=== PATIENT | male | born 1960 | race Caucasian/White ===

== ENCOUNTER 2016-12-11 15:05 | Inpatient (IN) | payer MEDICAID ==
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
[2016-12-11 15:20] LABS: % IMMATURE GRANULYOCYTES 1.1 % (0.0-1.1); ABSOLUTE IMMATURE GRANULOCYTES 0.27 10^3/uL (0.00-0.10); ADD DIFF? NO; ADD MORPH? NO; ADD SCAN? NO; ATYPICAL LYMPHOCYTE FLAG 0 (0-99); FRAGMENT RBC FLAG 0 (0-99); HEMATOCRIT 48.5 % (40.0-51.0); HEMOGLOBIN 16.6 g/dL (13.7-17.5); LEFT SHIFT FLG 20 (0-99); LIPEMIA HEMOLYSIS FLAG 90 (0-99); MEAN CELL HEMOGLOBIN 32.1 pg (27.9-34.1); MEAN CELL HEMOGLOBIN CONCENTR. 34.2 g/dL (32.4-36.7); MEAN CELL VOLUME 93.8 fL (81.5-99.8); PLATELET CLUMPS FLAG 0 (0-99); PLATELET COUNT 269 10^3/uL (150-400); RED BLOOD CELL COUNT 5.17 10^6/uL (4.40-6.38); RED CELL DISTRIBUTION WIDTH 13.5 % (11.5-15.2)
[2016-12-11] MEDS ORDERED: LORazepam 2 MG/ML INJ IVP ONE ×2 (15:30→16:47)
[2016-12-11 15:35] LABS: INR 1.13 (0.83-1.16); PROTIME(PATIENT) 14.4 SEC (12.0-15.0)
[2016-12-11 15:36] LABS: APTT 30.9 SEC (23.0-38.0)
[2016-12-11] MEDS ORDERED: LORazepam 2 MG/ML INJ ONE (15:41)
[2016-12-11 15:48] LABS: ANION GAP 15 mEq/L (8-16); CALCIUM 9.4 mg/dL (8.5-10.4); CARBON DIOXIDE 16 mEq/l (22-31); CHLORIDE 104 mEq/L (97-110); ETHANOL SERUM < 10 mg/dL (0-10); GLOMERULAR FILTRATION RATE > 60; GLUCOSE 160 mg/dL (70-100); POTASSIUM 4.5 mEq/L (3.5-5.2); SODIUM 135 mEq/L (134-144)
[2016-12-11] MEDS ORDERED: TDAP ADULT 0.5 ML INJ (BOOSTRIX) IM ONE (16:28)
[2016-12-11] MEDS: PROPOFOL/EMULSION 100 ML IV SCH ×2 (17:15→20:17)
[2016-12-11] MEDS ORDERED: PROPOFOL/EMULSION 1,000 MG/100 ML BOTTLE IV ONE (17:18)
[2016-12-11] MEDS ORDERED: fentaNYL 100 MCG/2 ML INJ ONE ×4 (18:08→22:15)
[2016-12-11 18:09] LABS: BASE EXCESS -4.9 mEq/L (-2.5-2.5); BICARBONATE 22 mEq/L (22-26); MEASURED OXYGEN SATURATION 99 % (92-95); PCO2 49 mmHg (34-38); PO2 382 mmHg (65-75); TCO2 24 mEq/L (23-27)
[2016-12-11 18:27] LABS: SIMV YES
[2016-12-11 18:28] LABS: O2 CONCENTRATIION 100 % (0-100); P/F RATIO 382 RATIO; PATIENT RATE 14; PRESSURE SUPPORT 7
[2016-12-11] MEDS ORDERED: ETOMIDATE 20 MG/10 ML VIAL IVP ONE (18:49)
[2016-12-11] MEDS ORDERED: PROPOFOL 200 MG/20 ML VIAL IVP ONE (18:49)
[2016-12-11] MEDS ORDERED: SUCCINYLCHOLINE CHLORIDE 200 MG/10 ML VIAL IVP ONE (18:49)
[2016-12-11] MEDS ORDERED: fentaNYL 100 MCG/2 ML INJ IVP ONE ×2 (18:49→18:59)
[2016-12-11] MEDS ORDERED: ETOMIDATE 40 MG/20 ML INJ ONE (19:43)
[2016-12-11] MEDS ORDERED: SUCCINYLCHOLINE CHLORIDE*ANESTHESIA ONLY*200 MG/10 ML SYR IVP ONE (19:43)
[2016-12-11] MEDS ORDERED: HYDROmorphONE/DILAUDID 1 MG/ML SYR IVP PRN (20:15)
[2016-12-11] MEDS ORDERED: D5W 1/2 NS W/ 20 KCl/L 1,000 ML IV SCH (20:15)
[2016-12-11] MEDS ORDERED: ONDANSETRON 4 MG/2 ML VIAL IVP PRN (20:16)
[2016-12-11] MEDS ORDERED: NALOXONE HCL 0.4 MG/ML INJ IVP PRN ×2 (20:16→22:13)
[2016-12-11] MEDS ORDERED: ACETAMINOPHEN 325 MG TAB PO PRN (20:16)
[2016-12-11] MEDS: levETIRAcetam 750 MG in NS 100 ML IV SCH (20:26)
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
[2016-12-11] MEDS: FAMOTIDINE 20 MG/NACL 50 ML IV SCH (20:34)
[2016-12-11] MEDS ORDERED: THROMBIN (BOVINE) 5,000 UNIT VIAL TP ONE (20:38)
[2016-12-11] MEDS ORDERED: MANNITOL 20% 100 GM/500 ML BAG IV ONE (20:38)
[2016-12-11] MEDS ORDERED: AVITENE POWDER 1 GM JAR TP ONE (20:38)
[2016-12-11] MEDS ORDERED: BUPIVACAINE/EPI 0.25% 30 ML SDV ONE (20:38)
[2016-12-11] MEDS ORDERED: BACITRACIN 50,000 UNITS/10 ML SYR IRR ONE ×2 (20:39→21:35)
[2016-12-11] MEDS ORDERED: PROPOFOL/EMULSION 500 MG/50 ML BOTTLE IV ONE (21:39)
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
[2016-12-11 21:56] LABS: BASE EXCESS -3.8 mEq/L (-2.5-2.5); BICARBONATE 21 mEq/L (22-26); MEASURED OXYGEN SATURATION 100 % (92-95); PCO2 41 mmHg (34-38); PO2 420 mmHg (65-75); TCO2 23 mEq/L (23-27)
[2016-12-11] MEDS ORDERED: SUGAMMADEX SODIUM 200 MG/2 ML VIAL IVP ONE (22:32)
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
[2016-12-11] MEDS ORDERED: niCARdipine/NACL 200 ML IV SCH (23:00)
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
[2016-12-12 05:05] LABS: % IMMATURE GRANULYOCYTES 0.5 % (0.0-1.1); ABSOLUTE IMMATURE GRANULOCYTES 0.09 10^3/uL (0.00-0.10); ADD DIFF? NO; ADD MORPH? NO; ADD SCAN? NO; ATYPICAL LYMPHOCYTE FLAG 0 (0-99); FRAGMENT RBC FLAG 0 (0-99); HEMOGLOBIN 13.1 g/dL (13.7-17.5); LEFT SHIFT FLG 10 (0-99); LIPEMIA HEMOLYSIS FLAG 90 (0-99); MEAN CELL HEMOGLOBIN 32.3 pg (27.9-34.1); MEAN CELL HEMOGLOBIN CONCENTR. 34.5 g/dL (32.4-36.7); MEAN CELL VOLUME 93.6 fL (81.5-99.8); MEAN PLATELET VOLUME 9.5 fL (8.7-11.7); PLATELET CLUMPS FLAG 10 (0-99); PLATELET COUNT 212 10^3/uL (150-400); RED BLOOD CELL COUNT 4.06 10^6/uL (4.40-6.38); RED CELL DISTRIBUTION WIDTH 13.6 % (11.5-15.2)
[2016-12-12 05:15] LABS: APTT 27.5 SEC (23.0-38.0); INR 1.14 (0.83-1.16); PROTIME(PATIENT) 14.5 SEC (12.0-15.0)
[2016-12-12 05:32] LABS: ALANINE AMINOTRANSFERASE 30 IU/L (21-72); ALKALINE PHOSPHATASE 84 IU/L (38-126); AMYLASE 71 IU/L (30-110); ASPARTATE AMINOTRANSFERASE 40 IU/L (17-59); BILIRUBIN,TOTAL 0.8 mg/dL (0.1-1.4); BILIRUBIN-CONJUGATED 0.4 mg/dL (0.0-0.5); BILIRUBIN-UNCONJUGATED 0.4 mg/dL (0.0-1.1); CALCIUM 8.6 mg/dL (8.5-10.4); CARBON DIOXIDE 21 mEq/l (22-31); CHLORIDE 108 mEq/L (97-110); CREATININE 0.9 mg/dL (0.7-1.3); GLOMERULAR FILTRATION RATE > 60; GLUCOSE 127 mg/dL (70-100); SODIUM 135 mEq/L (134-144); TOTAL PROTEIN 5.2 g/dL (6.3-8.2)
[2016-12-12 05:38] LABS: ANION GAP 6 mEq/L (8-16); POTASSIUM 4.5 mEq/L (3.5-5.2)
[2016-12-12] MEDS: ceFAZolin 2 GM/DEXTROSE 100 ML IV SCH ×3 (05:49→21:24)
[2016-12-12] MEDS: PROPOFOL/EMULSION 100 ML IV SCH ×2 (05:50→13:19)
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
[2016-12-12] MEDS: levETIRAcetam 750 MG in NS 100 ML IV SCH ×2 (08:44→21:24)
[2016-12-12] MEDS: FAMOTIDINE 20 MG/NACL 50 ML IV SCH ×2 (08:44→21:24)
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
[2016-12-12] MEDS: BACITRACIN ZINC 14.2 GM OINTTUBE TP SCH ×2 (09:29→19:49)
[2016-12-12 10:28] LABS: COLOR PALE YELLOW; LEUKOCYTE ESTERASE,URINE NEGATIVE (NEGATIVE); NITRITE,URINE NEGATIVE (NEGATIVE)
[2016-12-12 10:32] LABS: MUCUS TRACE /lpf (NONE-1+)
[2016-12-12] MEDS: CHLORHEXIDINE GLUCONATE 15 ML UDL PO SCH ×2 (11:30→21:24)
--- NOTE | 2016-12-12 12:41 | POSTANESTH ---
Post Anesthetic Evaluation Cardiovascular Status: Similar to Pre-Op Cond Respiratory Status: Similar to Pre-op Cond. Level of Consciousness/Mental Status: Other, See Comment Pain Control: Adequate, Prn Tx Ordered Nausea/Vomiting Control: Adequate, Prn Tx Ordered Complications Possibly Related to Anesthesia: None Noted (pt intubated/sedated)
[2016-12-12] MEDS: NS W/ 20 KCl/L 1,000 ML IV SCH (13:59)
[2016-12-12] MEDS: fentaNYL/NACL 100 ML IV SCH (14:17)
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
[2016-12-13] MEDS: NS W/ 20 KCl/L 1,000 ML IV SCH ×2 (03:10→12:57)
[2016-12-13] MEDS: fentaNYL/NACL 100 ML IV SCH ×3 (03:11→12:58)
[2016-12-13 04:20] LABS: BASE EXCESS -0.7 mEq/L (-2.5-2.5); BICARBONATE 23 mEq/L (22-26); MEASURED OXYGEN SATURATION 99 % (92-95); PCO2 38 mmHg (34-38); PO2 128 mmHg (65-75); TCO2 25 mEq/L (23-27)
[2016-12-13 04:21] LABS: END TIDAL CO2 32
[2016-12-13 04:22] LABS: % IMMATURE GRANULYOCYTES 0.5 % (0.0-1.1); ABSOLUTE IMMATURE GRANULOCYTES 0.09 10^3/uL (0.00-0.10); ADD DIFF? NO; ADD MORPH? NO; ADD SCAN? NO; ATYPICAL LYMPHOCYTE FLAG 0 (0-99); FRAGMENT RBC FLAG 0 (0-99); HEMOGLOBIN 11.7 g/dL (13.7-17.5); LEFT SHIFT FLG 10 (0-99); LIPEMIA HEMOLYSIS FLAG 90 (0-99); MEAN CELL HEMOGLOBIN 32.2 pg (27.9-34.1); MEAN CELL HEMOGLOBIN CONCENTR. 34.4 g/dL (32.4-36.7); MEAN CELL VOLUME 93.7 fL (81.5-99.8); MEAN PLATELET VOLUME 9.6 fL (8.7-11.7); PLATELET CLUMPS FLAG 0 (0-99); PLATELET COUNT 191 10^3/uL (150-400); RED BLOOD CELL COUNT 3.63 10^6/uL (4.40-6.38)
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
[2016-12-13 04:31] LABS: APTT 28.6 SEC (23.0-38.0); INR 1.18 (0.83-1.16)
[2016-12-13 04:42] LABS: ALANINE AMINOTRANSFERASE 31 IU/L (21-72); ALKALINE PHOSPHATASE 78 IU/L (38-126); ANION GAP 6 mEq/L (8-16); ASPARTATE AMINOTRANSFERASE 34 IU/L (17-59); BILIRUBIN,TOTAL 0.8 mg/dL (0.1-1.4); BILIRUBIN-CONJUGATED 0.5 mg/dL (0.0-0.5); BILIRUBIN-UNCONJUGATED 0.3 mg/dL (0.0-1.1); CALCIUM 8.6 mg/dL (8.5-10.4); CARBON DIOXIDE 24 mEq/l (22-31); CHLORIDE 106 mEq/L (97-110); CREATININE 0.7 mg/dL (0.7-1.3); GLOMERULAR FILTRATION RATE > 60; GLUCOSE 119 mg/dL (70-100); POTASSIUM 4.5 mEq/L (3.5-5.2); SODIUM 136 mEq/L (134-144); TOTAL PROTEIN 5.1 g/dL (6.3-8.2)
[2016-12-13] MEDS: ceFAZolin 2 GM/DEXTROSE 100 ML IV SCH ×3 (05:39→20:53)
[2016-12-13] MEDS: BACITRACIN ZINC 14.2 GM OINTTUBE TP SCH ×2 (08:21→20:53)
[2016-12-13] MEDS: CHLORHEXIDINE GLUCONATE 15 ML UDL PO SCH ×2 (08:22→20:53)
[2016-12-13] MEDS: FAMOTIDINE 20 MG/NACL 50 ML IV SCH ×2 (08:22→20:53)
[2016-12-13] MEDS: levETIRAcetam 750 MG in NS 100 ML IV SCH ×2 (08:22→21:02)
[2016-12-13] MEDS: PROPOFOL/EMULSION 100 ML IV SCH ×3 (08:24→16:20)
--- NOTE | 2016-12-13 08:48 | NEUSURGPN ---
Date of Surgery: 12/11/16 Post Op Day: 2 Assessment/Plan: A: 56 yo M POD #2 right craniotomy for evacuation of EDH P: neuro: stable, patient moves all extremities when sedation lightened respiratory failure: sedated with fentanyl/propofol, extubation per pulmonary Na: stable at 136, will recheck Na at noon. If Na gets below 135 then we may add 3% NACL PT/OT/ST once extubated scd/annabel for dvt prophylaxis will go to Q2 hour neuro checks claire thuan MARISCAL today post op head CT 12/12 shows good evacuation of EDH, stable SDH/SAH please call with neuro changes discussed with Dr Rowley Subjective: chart reviewed Objective: intubated/sedated Pupils: 3 mm ou reactive massive left sided facial swelling maria dolores x 4 when sedation light C/D/I Neuro Check Frequency: Q2 hour Urinary Catheter in Place: Yes Urinary Catheter Indication: Accurate I & O Required Catheter Insertion Date: 12/11/16 - Physician Discussed Patient with : Amrik Neurosurgery Physical Exam - Vitals, I&O, Labs I and O 12/12/16 12/13/16 12/14/16 05:59 05:59 05:59 Intake Total 3549.1 2644 Output Total 1229 2872 Balance 2320.1 -228 Weight 80.9 kg 79.6 kg Intake: IV Intake (ml) 800 IV Infused (ml) 2749.1 2644 NS W/ 20 KCl/L 1,000 ml @ 616 2179 75 mls/hr IV CONT SHAHEED Rx #:[id number] Propofol/Emulsion 100 ml 41 308 @ Titrate IV CONT SHAHEED Rx# :[id number] fentaNYL/NACL 100 ml @ 38 157 Per Protocol IV CONT SHAHEED Rx#:[id number] Output: Urine (ml) 749 2212 Catheter 349 2212 Estimated Blood Loss (ml) 150 Gastrointestinal Tube 250 Output (ml) OG Tube Output (ml) 600 Large Bore (>12 Kyr[place]z) 600 Stomach DAVEY Drain Output (ml) 80 60 Right Scalp Gianfranco Manriquez 80 60 Vital Signs Temp Pulse Resp BP Pulse Ox 37 C 51 L 18 120/49 L 100 12/13/16 07:00 12/13/16 08:15 12/13/16 08:00 12/13/16 08:00 12/13/16 08:15 Laboratory Results 12/13/16 04:15 12/13/16 04:15 ICD10 Worksheet Patient Problems: Problems Problem Status Onset Acute subdural hematoma Acute Laceration Acute Skull fracture Acute Subarachnoid hemorrhage Acute Empyema Active Lymphedema Active
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
[2016-12-13] MEDS: METOCLOPRAMIDE 10 MG/2 ML VIAL IVP SCH ×2 (11:13→17:23)
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
[2016-12-13] MEDS ORDERED: DEXMEDETOMIDINE HCL 400 MCG in NS 100 ML IV SCH (11:30)
[2016-12-13] MEDS: LORazepam 2 MG/ML INJ IVP PRN (12:35)
[2016-12-13] MEDS ORDERED: NS 1,000 ML IV ONE (14:39)
[2016-12-13] MEDS ORDERED: ALBUMIN 5% 500 ML IV ONE (15:45)
--- NOTE | 2016-12-13 16:02 | WOCRNPDOC ---
WOCRN Advanced Assessment Note - Skin Integrity Problem, Advanced Assess Coccyx Dressing Type: Allevyn Life Dressing Description: Clean/Dry, Intact Exudate Amount: None Integumentary Issue Intervention: Visualized Under Dressing Jaqui Wound Tissue: Erythema, Non-blanching Wound Bed Color: Aiken Wound Bed Constitution: Smooth Tissue Wound Edges: Attached Site Measurement - Head-to-Toe Length X Width X Depth (cm): 0.4x0.4x0.1 Pressure Injury Stage: Stage 2 Pressure Injury Present on Admit: Yes Skin Integrity Problem Comment: Patient being offloaded. Wound is barely through the epidermis. Of note left knee has a non blanching area that is likely a contusion but warrents rechecking in a week when we follow up to ensure it is not a pressure injury.
[2016-12-13 16:33] LABS: CALCULATED OXYGEN SATURATION 98 % (92-95); O2 CONCENTRATIION 40 % (0-100)
[2016-12-13] MEDS ORDERED: ALBUTEROL 200 PUFFS/18 GM MDI IH PRN (17:20)
[2016-12-14] MEDS: METOCLOPRAMIDE 10 MG/2 ML VIAL IVP SCH ×4 (00:20→17:07)
[2016-12-14] MEDS: PROPOFOL/EMULSION 100 ML IV SCH ×2 (00:20→05:21)
[2016-12-14] MEDS: fentaNYL/NACL 100 ML IV SCH ×3 (00:30→21:17)
[2016-12-14 04:22] LABS: % IMMATURE GRANULYOCYTES 0.7 % (0.0-1.1); ABSOLUTE IMMATURE GRANULOCYTES 0.09 10^3/uL (0.00-0.10); ADD DIFF? NO; ADD MORPH? NO; ADD SCAN? NO; ATYPICAL LYMPHOCYTE FLAG 0 (0-99); FRAGMENT RBC FLAG 0 (0-99); HEMATOCRIT 27.7 % (40.0-51.0); HEMOGLOBIN 9.2 g/dL (13.7-17.5); LEFT SHIFT FLG 10 (0-99); LIPEMIA HEMOLYSIS FLAG 80 (0-99); MEAN CELL HEMOGLOBIN 32.2 pg (27.9-34.1); MEAN CELL HEMOGLOBIN CONCENTR. 33.2 g/dL (32.4-36.7); MEAN CELL VOLUME 96.9 fL (81.5-99.8); PLATELET CLUMPS FLAG 30 (0-99); PLATELET COUNT 165 10^3/uL (150-400); RED BLOOD CELL COUNT 2.86 10^6/uL (4.40-6.38); RED CELL DISTRIBUTION WIDTH 14.3 % (11.5-15.2)
[2016-12-14 04:36] LABS: ANION GAP 7 mEq/L (8-16); CALCIUM 8.2 mg/dL (8.5-10.4); CARBON DIOXIDE 27 mEq/l (22-31); CHLORIDE 106 mEq/L (97-110); CREATININE 0.7 mg/dL (0.7-1.3); GLOMERULAR FILTRATION RATE > 60; GLUCOSE 97 mg/dL (70-100); POTASSIUM 4.1 mEq/L (3.5-5.2); SODIUM 140 mEq/L (134-144)
[2016-12-14] MEDS: ceFAZolin 2 GM/DEXTROSE 100 ML IV SCH ×3 (05:22→21:13)
[2016-12-14 05:28] LABS: BASE EXCESS 1.3 mEq/L (-2.5-2.5); BICARBONATE 26 mEq/L (22-26); MEASURED OXYGEN SATURATION 98 % (92-95); PCO2 47 mmHg (34-38); PO2 108 mmHg (65-75); TCO2 28 mEq/L (23-27)
[2016-12-14 05:29] LABS: CPAP YES; END TIDAL CO2 48; O2 CONCENTRATIION 40 % (0-100); P/F RATIO 270 RATIO; PATIENT RATE 12
[2016-12-14 05:30] LABS: PRESSURE SUPPORT 7
[2016-12-14] MEDS: BACITRACIN ZINC 14.2 GM OINTTUBE TP SCH ×2 (08:21→20:07)
[2016-12-14] MEDS: CHLORHEXIDINE GLUCONATE 15 ML UDL PO SCH (08:21)
[2016-12-14] MEDS: FAMOTIDINE 20 MG/NACL 50 ML IV SCH ×2 (08:22→20:07)
[2016-12-14] MEDS: levETIRAcetam 750 MG in NS 100 ML IV SCH ×2 (08:53→20:07)
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
[2016-12-14] MEDS: DEXMEDETOMIDINE HCL 400 MCG in NS 100 ML IV SCH ×3 (13:07→22:39)
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
[2016-12-14] MEDS: LORazepam 2 MG/ML INJ IVP PRN ×3 (13:25→20:42)
[2016-12-14] MEDS: HALOPERIDOL LACT 5 MG/ML INJ IVP PRN (13:39)
[2016-12-14] MEDS ORDERED: ATROPINE SULFATE 1 MG/10 ML SYR ONE (16:55)
--- NOTE | 2016-12-14 17:58 | CPEKG ---
Heart Rate: 82 RR Interval: 732 QRSD Interval: 108 QT Interval: 376 QTC Interval: 439 QRS Appleton: 60 T Wave Appleton: 75 EKG Severity - ABNORMAL ECG - EKG Impression: ATRIAL FIBRILLATION EKG Impression: ATRIAL FIBRILLATION HAS REPLACED NORMAL SINUS RHYTHM NOTED ON PRIOR ECG Electronically Signed By: Xavier Zhao 15-Dec-2016 09:25:26
[2016-12-15] MEDS: METOCLOPRAMIDE 10 MG/2 ML VIAL IVP SCH ×4 (01:49→17:49)
[2016-12-15] MEDS: LORazepam 2 MG/ML INJ IVP PRN ×5 (02:57→23:14)
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
[2016-12-15 05:20] LABS: % IMMATURE GRANULYOCYTES 0.5 % (0.0-1.1); ABSOLUTE IMMATURE GRANULOCYTES 0.07 10^3/uL (0.00-0.10); ADD DIFF? NO; ADD MORPH? NO; ADD SCAN? NO; ATYPICAL LYMPHOCYTE FLAG 0 (0-99); FRAGMENT RBC FLAG 0 (0-99); HEMATOCRIT 28.4 % (40.0-51.0); HEMOGLOBIN 9.4 g/dL (13.7-17.5); LEFT SHIFT FLG 0 (0-99); LIPEMIA HEMOLYSIS FLAG 80 (0-99); MEAN CELL HEMOGLOBIN 31.6 pg (27.9-34.1); MEAN CELL HEMOGLOBIN CONCENTR. 33.1 g/dL (32.4-36.7); MEAN CELL VOLUME 95.6 fL (81.5-99.8); MEAN PLATELET VOLUME 9.6 fL (8.7-11.7); PLATELET CLUMPS FLAG 0 (0-99); PLATELET COUNT 213 10^3/uL (150-400); RED BLOOD CELL COUNT 2.97 10^6/uL (4.40-6.38); RED CELL DISTRIBUTION WIDTH 13.5 % (11.5-15.2)
[2016-12-15 05:33] LABS: ANION GAP 7 mEq/L (8-16); CALCIUM 8.6 mg/dL (8.5-10.4); CARBON DIOXIDE 28 mEq/l (22-31); CHLORIDE 104 mEq/L (97-110); CREATININE 0.7 mg/dL (0.7-1.3); GLOMERULAR FILTRATION RATE > 60; GLUCOSE 88 mg/dL (70-100); SODIUM 139 mEq/L (134-144)
[2016-12-15] MEDS: ceFAZolin 2 GM/DEXTROSE 100 ML IV SCH ×3 (05:56→21:37)
[2016-12-15] MEDS: DEXMEDETOMIDINE HCL 400 MCG in NS 100 ML IV SCH ×3 (05:56→21:38)
[2016-12-15] MEDS: fentaNYL/NACL 100 ML IV SCH ×2 (06:47→21:38)
[2016-12-15] MEDS: FAMOTIDINE 20 MG/NACL 50 ML IV SCH ×2 (08:01→21:40)
[2016-12-15] MEDS: levETIRAcetam 750 MG in NS 100 ML IV SCH ×2 (08:01→22:00)
[2016-12-15] MEDS: BACITRACIN ZINC 14.2 GM OINTTUBE TP SCH ×2 (08:02→21:00)
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
[2016-12-15] MEDS: HALOPERIDOL LACT 5 MG/ML INJ IVP PRN (15:13)
[2016-12-15] MEDS: NS W/ 20 KCl/L 1,000 ML IV SCH ×2 (15:56→21:38)
[2016-12-15] MEDS ORDERED: BACITRACIN OINTMENT 1 PACKET TP ONE (21:27)
[2016-12-16] MEDS: HALOPERIDOL LACT 5 MG/ML INJ IVP PRN ×2 (01:19→13:47)
[2016-12-16] MEDS: METOCLOPRAMIDE 10 MG/2 ML VIAL IVP SCH ×5 (01:31→23:40)
[2016-12-16] MEDS ORDERED: ALBUTEROL 3 ML DEYVIAL ONE (02:06)
[2016-12-16] MEDS: DEXMEDETOMIDINE HCL 400 MCG in NS 100 ML IV SCH ×2 (03:00→06:03)
[2016-12-16] MEDS: fentaNYL/NACL 100 ML IV SCH ×3 (05:14→23:40)
[2016-12-16 05:59] LABS: % IMMATURE GRANULYOCYTES 0.8 % (0.0-1.1); ABSOLUTE IMMATURE GRANULOCYTES 0.14 10^3/uL (0.00-0.10); ABSOLUTE NRBC COUNT 0.02 10^3/uL (0-0.01); ADD DIFF? NO; ADD MORPH? NO; ADD SCAN? NO; ATYPICAL LYMPHOCYTE FLAG 0 (0-99); FRAGMENT RBC FLAG 0 (0-99); LEFT SHIFT FLG 30 (0-99); LIPEMIA HEMOLYSIS FLAG 80 (0-99); MEAN CELL HEMOGLOBIN 31.9 pg (27.9-34.1); MEAN CELL HEMOGLOBIN CONCENTR. 33.3 g/dL (32.4-36.7); MEAN CELL VOLUME 95.7 fL (81.5-99.8); MEAN PLATELET VOLUME 9.7 fL (8.7-11.7); NRBC-AUTO% 0.1 % (0.0-0.2); PLATELET CLUMPS FLAG 0 (0-99); PLATELET COUNT 238 10^3/uL (150-400); RED BLOOD CELL COUNT 3.45 10^6/uL (4.40-6.38); RED CELL DISTRIBUTION WIDTH 13.4 % (11.5-15.2)
[2016-12-16] MEDS: ceFAZolin 2 GM/DEXTROSE 100 ML IV SCH (06:01)
[2016-12-16 06:10] LABS: ALANINE AMINOTRANSFERASE 57 IU/L (21-72); ALBUMIN 2.9 g/dL (3.5-5.0); ALKALINE PHOSPHATASE 73 IU/L (38-126); ANION GAP 11 mEq/L (8-16); ASPARTATE AMINOTRANSFERASE 85 IU/L (17-59); BILIRUBIN,TOTAL 1.1 mg/dL (0.1-1.4); CALCIUM 8.1 mg/dL (8.5-10.4); CARBON DIOXIDE 25 mEq/l (22-31); CHLORIDE 105 mEq/L (97-110); CREATININE 0.6 mg/dL (0.7-1.3); GLOMERULAR FILTRATION RATE > 60; GLUCOSE 84 mg/dL (70-100); SODIUM 141 mEq/L (134-144); TOTAL PROTEIN 5.1 g/dL (6.3-8.2)
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
[2016-12-16] MEDS: NS W/ 20 KCl/L 1,000 ML IV SCH ×2 (06:47→17:54)
[2016-12-16] MEDS ORDERED: LIDOCAINE 2% JELLY 5 ML TUBE ONE (08:08)
[2016-12-16] MEDS ORDERED: PROPOFOL/EMULSION 1,000 MG/100 ML BOTTLE IV ONE (08:08)
[2016-12-16] MEDS ORDERED: LIDOCAINE 1% 300 MG/30 ML SDV ONE (08:09)
[2016-12-16] MEDS ORDERED: PROPOFOL/EMULSION 100 ML IV SCH (08:12)
[2016-12-16] MEDS ORDERED: LIDOCAINE 2% JELLY 5 ML TUBE TP ONE (08:14)
[2016-12-16] MEDS ORDERED: BENZOCAINE UNIT DOSE SPRAY HURRICAINE MM ONE (08:14)
[2016-12-16] MEDS ORDERED: LIDOCAINE 1% 300 MG/30 ML SDV MISC ONE (08:14)
[2016-12-16] MEDS: FAMOTIDINE 20 MG/NACL 50 ML IV SCH ×2 (08:40→21:10)
[2016-12-16] MEDS: levETIRAcetam 750 MG in NS 100 ML IV SCH ×2 (08:40→21:09)
[2016-12-16] MEDS: PROPOFOL/EMULSION 100 ML IV SCH ×2 (08:42→19:12)
[2016-12-16] MEDS: MIDAZOLAM 2 MG/2 ML VIAL IVP ONE ×2 (08:48→09:15)
[2016-12-16] MEDS ORDERED: FUROSEMIDE 40 MG/4 ML VIAL ONE (09:03)
[2016-12-16] MEDS ORDERED: FUROSEMIDE 40 MG/4 ML VIAL IVP ONE (09:18)
[2016-12-16] MEDS: BACITRACIN ZINC 14.2 GM OINTTUBE TP SCH ×2 (10:00→21:10)
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
[2016-12-16] MEDS ORDERED: ERTAPENEM 1 GM in NS 100 ML IV ONE ×2 (10:59→12:00)
[2016-12-16 11:22] LABS: BASE EXCESS 0.3 mEq/L (-2.5-2.5); BICARBONATE 25 mEq/L (22-26); MEASURED OXYGEN SATURATION 99 % (92-95); PCO2 43 mmHg (34-38); PO2 139 mmHg (65-75); TCO2 26 mEq/L (23-27)
[2016-12-16 11:26] LABS: ASSIST CONTROL YES; P/F RATIO 139 RATIO
[2016-12-16 11:27] LABS: END TIDAL CO2 24; O2 CONCENTRATIION 100 % (0-100)
[2016-12-16 11:28] LABS: TOTAL RATE 23
[2016-12-16] MEDS: ERTAPENEM 1 GM in NS 100 ML IV SCH (11:45)
[2016-12-16 11:54] LABS: TROPONIN I 0.041 ng/mL (0-0.034)
[2016-12-16] MEDS: LORazepam 2 MG/ML INJ IVP PRN (12:07)
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
[2016-12-16] MEDS ORDERED: ATROPINE SULFATE 1 MG/10 ML SYR ONE (12:54)
[2016-12-16] MEDS ORDERED: ALBUMIN 5% 500 ML BOTTLE IV ONE (13:05)
[2016-12-16] MEDS ORDERED: DOPamine/DEXTROSE/250 ML BAG IV ONE (13:07)
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
[2016-12-16] MEDS ORDERED: ALBUMIN 5% 500 ML IV ONE (13:32)
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
[2016-12-16] MEDS: CHLORHEXIDINE GLUCONATE 15 ML UDL PO SCH ×2 (17:53→21:10)
--- NOTE | 2016-12-16 23:44 | CPEKG ---
Heart Rate: 116 RR Interval: 517 QRSD Interval: 108 QT Interval: 328 QTC Interval: 456 QRS [place]: 67 T Wave [place]: 106 EKG Severity - ABNORMAL ECG - EKG Impression: ATRIAL FIBRILLATION, V-RATE 80-155 EKG Impression: VENTRICULAR PREMATURE COMPLEX EKG Impression: INCOMPLETE RIGHT BUNDLE BRANCH BLOCK Electronically Signed By: Isela Conde 17-Dec-2016 05:27:57
[2016-12-17] MEDS: DILTIAZEM 125 MG in D5W 125 ML IV SCH ×2 (01:06→08:36)
[2016-12-17 05:39] LABS: % IMMATURE GRANULYOCYTES 0.9 % (0.0-1.1); ABSOLUTE IMMATURE GRANULOCYTES 0.16 10^3/uL (0.00-0.10); ABSOLUTE NRBC COUNT 0.02 10^3/uL (0-0.01); ADD DIFF? NO; ADD MORPH? NO; ADD SCAN? NO; ATYPICAL LYMPHOCYTE FLAG 0 (0-99); FRAGMENT RBC FLAG 0 (0-99); HEMATOCRIT 27.7 % (40.0-51.0); HEMOGLOBIN 9.3 g/dL (13.7-17.5); LEFT SHIFT FLG 20 (0-99); LIPEMIA HEMOLYSIS FLAG 80 (0-99); MEAN CELL HEMOGLOBIN 32.1 pg (27.9-34.1); MEAN CELL HEMOGLOBIN CONCENTR. 33.6 g/dL (32.4-36.7); MEAN CELL VOLUME 95.5 fL (81.5-99.8); MEAN PLATELET VOLUME 9.5 fL (8.7-11.7); NRBC-AUTO% 0.1 % (0.0-0.2); PLATELET CLUMPS FLAG 0 (0-99); PLATELET COUNT 213 10^3/uL (150-400); RED CELL DISTRIBUTION WIDTH 13.4 % (11.5-15.2)
[2016-12-17 05:40] LABS: BICARBONATE 28 mEq/L (22-26); MEASURED OXYGEN SATURATION 90 % (92-95); PCO2 48 mmHg (34-38); PO2 61 mmHg (65-75); TCO2 30 mEq/L (23-27)
[2016-12-17 05:41] LABS: ASSIST CONTROL YES; END TIDAL CO2 40; O2 CONCENTRATIION 60 % (0-100); P/F RATIO 102 RATIO; TOTAL RATE 22
[2016-12-17 05:54] LABS: ALANINE AMINOTRANSFERASE 42 IU/L (21-72); ALBUMIN 2.3 g/dL (3.5-5.0); ALKALINE PHOSPHATASE 54 IU/L (38-126); ANION GAP 7 mEq/L (8-16); ASPARTATE AMINOTRANSFERASE 35 IU/L (17-59); BILIRUBIN,TOTAL 0.9 mg/dL (0.1-1.4); CALCIUM 8.3 mg/dL (8.5-10.4); CARBON DIOXIDE 29 mEq/l (22-31); CHLORIDE 108 mEq/L (97-110); CREATININE 0.7 mg/dL (0.7-1.3); GLOMERULAR FILTRATION RATE > 60; GLUCOSE 102 mg/dL (70-100); POTASSIUM 3.4 mEq/L (3.5-5.2); SODIUM 144 mEq/L (134-144); TOTAL PROTEIN 4.3 g/dL (6.3-8.2)
[2016-12-17] MEDS: METOCLOPRAMIDE 10 MG/2 ML VIAL IVP SCH ×4 (06:32→23:45)
[2016-12-17] MEDS: ERTAPENEM 1 GM in NS 100 ML IV SCH (08:35)
[2016-12-17] MEDS: levETIRAcetam 750 MG in NS 100 ML IV SCH (08:36)
[2016-12-17] MEDS: FAMOTIDINE 20 MG/NACL 50 ML IV SCH (08:36)
[2016-12-17] MEDS: CHLORHEXIDINE GLUCONATE 15 ML UDL PO SCH ×2 (08:52→20:43)
[2016-12-17] MEDS: BACITRACIN ZINC 14.2 GM OINTTUBE TP SCH ×2 (09:37→20:43)
[2016-12-17] MEDS ORDERED: AMIODARONE HCL 100 ML IV ONE (09:48)
[2016-12-17] MEDS ORDERED: METOPROLOL TARTRATE 5 MG/5 ML INJ IVP ONE (09:50)
[2016-12-17] MEDS ORDERED: NOREPINEPHRINE BITARTRATE 4 MG in D5W 500 ML IV SCH (10:00)
[2016-12-17] MEDS ORDERED: PROTOCOL POTASSIUM 1 DOSE MISC PRN (10:29)
[2016-12-17] MEDS ORDERED: PROTOCOL CALCIUM 1 DOSE IV PRN (10:29)
[2016-12-17] MEDS ORDERED: PROTOCOL MAGNESIUM 1 DOSE IV PRN (10:29)
[2016-12-17] MEDS: NOREPINEPHRINE/NS 500 ML IV SCH ×3 (10:30→20:42)
[2016-12-17] MEDS ORDERED: AMIODARONE A.FIB-6HR INFSN (ORDER 2/3) IV ONE (10:30)
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
[2016-12-17] MEDS: POTASSIUM Cl (KCl) 50 ML IV SCH ×3 (11:24→13:03)
[2016-12-17] MEDS ORDERED: BUPIVACAINE/EPI 0.5% 30 ML SDV ONE (11:27)
[2016-12-17] MEDS ORDERED: LIDOCAINE 1% 300 MG/30 ML SDV ONE ×2 (11:27→17:27)
[2016-12-17] MEDS: fentaNYL/NACL 100 ML IV SCH ×2 (11:53→22:16)
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
--- NOTE | 2016-12-17 12:39 | CPEKG ---
Heart Rate: 85 RR Interval: 706 QRSD Interval: 104 QT Interval: 368 QTC Interval: 438 QRS [place]: 70 T Wave [place]: 74 EKG Severity - ABNORMAL ECG - EKG Impression: ATRIAL FIBRILLATION EKG Impression: BORDERLINE PROLONGED QT INTERVAL Electronically Signed By: Christiano Quijano 18-Dec-2016 08:10:23
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
[2016-12-17] MEDS: PROPOFOL/EMULSION 100 ML IV SCH (15:41)
[2016-12-17] MEDS: PETROLAT,WHT/MIN OIL/SOD CHL 3.5 GM OPHT.OINT EACHEYE PRN (15:45)
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
[2016-12-17] MEDS ORDERED: MIDAZOLAM 2 MG/2 ML VIAL ONE (16:28)
[2016-12-17] MEDS ORDERED: AMIODARONE HCL 540 MG in D5W 300 ML IV ONE (16:30)
[2016-12-17] MEDS ORDERED: MIDAZOLAM 2 MG/2 ML VIAL IVP ONE (16:30)
[2016-12-17] MEDS ORDERED: BUPIVACAINE 0.5% 30 ML SDV ONE (16:42)
[2016-12-17] MEDS ORDERED: ROCURONIUM 100 MG/10 ML VIAL ONE (16:59)
[2016-12-17] MEDS ORDERED: LIDOCAINE 2% JELLY 5 ML TUBE ONE (17:27)
--- NOTE | 2016-12-17 18:10 | POSTOPPROG ---
Post Op Note Date of Operation: 12/17/16 Surgeon: Conrado Alvarado Anesthesiologist: AI Anesthesia: GET(General Endotracheal) Pre-op Diagnosis: HEAD INJURY/RESPIRATORY FAILURE Post-op Diagnosis: SAME Indication: SAME Procedure: TRACHEOSTOMY Findings: DIFFICULT SEAL REQUIRING LONGER TRACHEOSTOMY TO Inf/Abcess present in the surg proc area at time of surgery?: Yes Depth: Organ Space EBL: Minimal
--- NOTE | 2016-12-17 18:15 | POSTOPPROG ---
Post Op Note Date of Operation: 12/20/16 Surgeon: Conrado Alvarado Anesthesia: Local (Specify) Pre-op Diagnosis: RIGHT LUNG INFILTRATE Post-op Diagnosis: SAME Indication: CLEAR SECRETIONS Procedure: FIBEROPTIC BRONCHOSCOPY Findings: FROTHY SECRETIONS BUT NO ENDOBRONCHIAL LESIONS Inf/Abcess present in the surg proc area at time of surgery?: Yes Depth: Organ Space EBL: Minimal Complications: NONE
--- NOTE | 2016-12-17 18:17 | POSTOPPROG ---
Post Op Note Date of Operation: 12/17/16 Surgeon: Conrado Alvarado Pre-op Diagnosis: RESPIRATORY FAILURE Post-op Diagnosis: SAME Indication: SAME Procedure: FIBEROPTIC BRONCHOSCOPY Findings: WATERY SPUTUM BUT CLEAR TRACHEOBRONCHIAL TREE Inf/Abcess present in the surg proc area at time of surgery?: Yes Depth: Organ Space EBL: Minimal Complications: NONE
--- NOTE | 2016-12-17 18:42 | GOP ---
[f rep st] OPERATIVE REPORT DATE OF OPERATION: 12/17/2016 SURGEON: Conrado Alvarado MD PREOPERATIVE DIAGNOSIS: Respiratory difficulties. POSTOPERATIVE DIAGNOSIS: Respiratory difficulties. PROCEDURE PERFORMED: Fiberoptic bronchoscopy. FINDINGS: Patient was found to have frothy, slightly pink-tinged sputum, but no real endobronchial lesions and no mucus plugs. Anatomy appeared to be reasonably normal. DESCRIPTION OF PROCEDURE: Patient was in the ICU under sedation. He had a tracheostomy tube in [facility]. A fiberoptic bronchoscope was passed through the tracheostomy tube and adequate visualization w as established after suctioning out of frothy, watery sputum. There were no big mucus plugs, no puru lence per se and no endobronchial lesions or obstruction. Scope was removed. He tolerated the proc edure well. No complications. /[id number]/MODL
[2016-12-17] MEDS: levETIRAcetam 500 MG/5 ML UDCUP TUBE SCH (20:43)
[2016-12-17] MEDS: FAMOTIDINE 20 MG TAB TUBE SCH (20:44)
[2016-12-17 21:18] LABS: BASE EXCESS 3.4 mEq/L (-2.5-2.5); BICARBONATE 29 mEq/L (22-26); MEASURED OXYGEN SATURATION 93 % (92-95); PCO2 50 mmHg (34-38); PO2 67 mmHg (65-75); TCO2 30 mEq/L (23-27)
[2016-12-17 21:19] LABS: END TIDAL CO2 45
[2016-12-17 21:20] LABS: TOTAL RATE 18
[2016-12-18] MEDS: PETROLAT,WHT/MIN OIL/SOD CHL 3.5 GM OPHT.OINT EACHEYE PRN
--- NOTE | 2016-12-18 00:27 | GOP ---
[f rep st] OPERATIVE REPORT DATE OF OPERATION: 12/17/2016 SURGEON: Conrado Alvarado MD PREOPERATIVE DIAGNOSIS: Head injury and respiratory failure. POSTOPERATIVE DIAGNOSIS: Head injury and respiratory failure. PROCEDURE PERFORMED: Tracheostomy. FINDINGS: The patient was found to have a patulous trachea. We had difficulties with a good seal w ith a short tracheostomy tube and had to change to a longer version of the [place] tracheostomy tube for an adequate seal. DESCRIPTION OF PROCEDURE: The patient was in the ICU in his bed. Dr. Mishra administered sedation and general anesthesia. He was prepped and draped in usual sterile fashion. Using 1% Xylocaine, a transverse incision made in the low neck. Dissection was carried down through the platysma and subc utaneous tissue. Strap muscles were in the midline exposing the trachea. The midportion of the thyroid had to be partially divided with electrocautery to expose an adequate amount of trach ea. The second tracheal ring was grasped with a trach hook and elevated up and the third tracheal r ing was opened and divided with an I-type incision. Trach physical fitness teacher was placed and an 8 nonfenestrat ed tracheostomy tube was introduced; however, we had difficulties with maintaining good ventilation and having a large air leak despite a high volume and the cuff. It was elected to eventually change to a longer trach tube. This was removed. The edges of the tracheostomy were grasped with Allis c lamps and then a longer 8-[place] trach tube was inserted. This gave us a much better seal, much les s leak, and appeared to be a better decision. Tracheostomy tube was then secured in place with 3-0 Prolene sutures and trach ties and the wound was dressed. He tolerated the procedure quite well. T here were no complications. /[id number]/MODL
[2016-12-18] MEDS: NOREPINEPHRINE/NS 500 ML IV SCH ×2 (01:34→15:32)
--- NOTE | 2016-12-18 03:46 | CPEKG ---
Heart Rate: 74 RR Interval: 811 P-R Interval: 136 QRSD Interval: 112 QT Interval: 384 QTC Interval: 426 P [place]: 71 QRS [place]: 68 T Wave [place]: 69 EKG Severity - ABNORMAL ECG - EKG Impression: SINUS RHYTHM EKG Impression: INCOMPLETE RIGHT BUNDLE BRANCH BLOCK Electronically Signed By: Christiano Quijano 18-Dec-2016 08:10:30
[2016-12-18] MEDS: METOCLOPRAMIDE 10 MG/2 ML VIAL IVP SCH ×3 (06:05→17:38)
[2016-12-18 06:08] LABS: BASE EXCESS 3.2 mEq/L (-2.5-2.5); BICARBONATE 29 mEq/L (22-26); IONIZED CALCIUM 1.19 MMOL/L (1.12-1.30); MEASURED OXYGEN SATURATION 98 % (92-95); PCO2 54 mmHg (34-38); PO2 125 mmHg (65-75); TCO2 31 mEq/L (23-27)
[2016-12-18 06:09] LABS: ASSIST CONTROL YES; END TIDAL CO2 44; O2 CONCENTRATIION 70 % (0-100); P/F RATIO 179 RATIO; TOTAL RATE 16
[2016-12-18 06:11] LABS: ABSOLUTE IMMATURE GRANULOCYTES 0.17 10^3/uL (0.00-0.10); ADD DIFF? NO; ADD MORPH? NO; ADD SCAN? NO; ATYPICAL LYMPHOCYTE FLAG 0 (0-99); FRAGMENT RBC FLAG 0 (0-99); HEMATOCRIT 25.2 % (40.0-51.0); HEMOGLOBIN 8.3 g/dL (13.7-17.5); LEFT SHIFT FLG 20 (0-99); LIPEMIA HEMOLYSIS FLAG 80 (0-99); MEAN CELL HEMOGLOBIN 32.2 pg (27.9-34.1); MEAN CELL HEMOGLOBIN CONCENTR. 32.9 g/dL (32.4-36.7); MEAN CELL VOLUME 97.7 fL (81.5-99.8); MEAN PLATELET VOLUME 9.8 fL (8.7-11.7); PLATELET CLUMPS FLAG 0 (0-99); PLATELET COUNT 253 10^3/uL (150-400); RED BLOOD CELL COUNT 2.58 10^6/uL (4.40-6.38); RED CELL DISTRIBUTION WIDTH 14.1 % (11.5-15.2)
[2016-12-18] MEDS: PROPOFOL/EMULSION 100 ML IV SCH ×3 (06:25→21:32)
[2016-12-18 06:33] LABS: ANION GAP 5 mEq/L (8-16); CARBON DIOXIDE 29 mEq/l (22-31); CHLORIDE 112 mEq/L (97-110); CREATININE 0.6 mg/dL (0.7-1.3); GLUCOSE 113 mg/dL (70-100); POTASSIUM 3.7 mEq/L (3.5-5.2); SODIUM 146 mEq/L (134-144)
[2016-12-18 06:34] LABS: ALANINE AMINOTRANSFERASE 39 IU/L (21-72); ALKALINE PHOSPHATASE 58 IU/L (38-126); ASPARTATE AMINOTRANSFERASE 30 IU/L (17-59); BILIRUBIN,TOTAL 0.8 mg/dL (0.1-1.4); CALCIUM 7.7 mg/dL (8.5-10.4); GLOMERULAR FILTRATION RATE > 60; MAGNESIUM 1.9 mg/dL (1.6-2.3); TOTAL PROTEIN 4.1 g/dL (6.3-8.2)
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
[2016-12-18] MEDS ORDERED: POTASSIUM Cl (KCl) 50 ML IV ONE (08:38)
--- NOTE | 2016-12-18 08:48 | CPEKG ---
Heart Rate: 82 RR Interval: 732 P-R Interval: 128 QRSD Interval: 114 QT Interval: 400 QTC Interval: 468 P [place]: 2 QRS [place]: 70 T Wave [place]: 79 EKG Severity - ABNORMAL ECG - EKG Impression: SINUS RHYTHM EKG Impression: INCOMPLETE RIGHT BUNDLE BRANCH BLOCK EKG Impression: BORDERLINE R WAVE PROGRESSION, ANTERIOR LEADS EKG Impression: IN COMPARISON TO PRIOR ECG, NORMAL SINUS RHYTHM HAS BEEN REESTABLISHED Electronically Signed By: Xavier Zhao 19-Dec-2016 12:02:30
[2016-12-18] MEDS: CHLORHEXIDINE GLUCONATE 15 ML UDL PO SCH ×2 (09:05→21:31)
[2016-12-18] MEDS: ERTAPENEM 1 GM in NS 100 ML IV SCH (09:05)
[2016-12-18] MEDS: levETIRAcetam 500 MG/5 ML UDCUP TUBE SCH ×2 (09:05→21:31)
[2016-12-18] MEDS: fentaNYL/NACL 100 ML IV SCH ×2 (09:06→17:30)
[2016-12-18] MEDS: FAMOTIDINE 20 MG TAB TUBE SCH ×2 (09:06→21:30)
[2016-12-18] MEDS: NS W/ 20 KCl/L 1,000 ML IV SCH ×2 (09:06→21:31)
[2016-12-18] MEDS: BACITRACIN ZINC 14.2 GM OINTTUBE TP SCH ×2 (09:07→21:31)
[2016-12-18] MEDS: AMIODARONE HCL 540 MG in D5W 300 ML IV SCH (09:35)
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
[2016-12-18] MEDS ORDERED: BISACODYL 10 MG SUPP PR PRN (16:05)
[2016-12-18] MEDS ORDERED: MAGNESIUM HYDROXIDE 30 ML UDCUP TUBE PRN (16:05)
[2016-12-18] MEDS ORDERED: LACTULOSE 20 GM/30 ML UDCUP TUBE PRN (16:05)
[2016-12-18] MEDS ORDERED: POLYETHYLENE GLYCOL 3350 17 GM PKT TUBE PRN (16:05)
[2016-12-18 18:59] LABS: POTASSIUM 3.9 mEq/L (3.5-5.2)
[2016-12-18] MEDS: SENNOSIDES 17.6 MG/10 ML UDL - IF LIQUID ORDERED TUBE SCH (21:31)
[2016-12-19] MEDS: METOCLOPRAMIDE 10 MG/2 ML VIAL IVP SCH ×5 (00:09→23:24)
[2016-12-19] MEDS: PROPOFOL/EMULSION 100 ML IV SCH ×3 (01:04→14:11)
[2016-12-19] MEDS: AMIODARONE HCL 540 MG in D5W 300 ML IV SCH ×2 (01:04→17:00)
[2016-12-19] MEDS: fentaNYL/NACL 100 ML IV SCH ×3 (01:04→14:56)
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
[2016-12-19 04:25] LABS: ASSIST CONTROL YES
[2016-12-19 04:26] LABS: END TIDAL CO2 39; O2 CONCENTRATIION 40 % (0-100); TOTAL RATE 20
[2016-12-19 04:40] LABS: MAGNESIUM 1.9 mg/dL (1.6-2.3); POTASSIUM 3.5 mEq/L (3.5-5.2)
[2016-12-19 04:58] LABS: BASE EXCESS 6.6 mEq/L (-2.5-2.5); BICARBONATE 31 mEq/L (22-26); IONIZED CALCIUM 1.14 MMOL/L (1.12-1.30); MEASURED OXYGEN SATURATION 98 % (92-95); P/F RATIO 273 RATIO; PCO2 44 mmHg (34-38); PO2 109 mmHg (65-75); TCO2 32 mEq/L (23-27)
[2016-12-19] MEDS: POTASSIUM Cl (KCl) 50 ML IV SCH ×3 (05:23→08:14)
--- NOTE | 2016-12-19 05:54 | CPEKG ---
Heart Rate: 58 RR Interval: 1034 P-R Interval: 164 QRSD Interval: 108 QT Interval: 440 QTC Interval: 433 P [place]: 51 QRS [place]: 48 T Wave [place]: 61 EKG Severity - NORMAL ECG - EKG Impression: SINUS RHYTHM Electronically Signed By: Xavier Zhao 19-Dec-2016 12:02:36
[2016-12-19] MEDS: CHLORHEXIDINE GLUCONATE 15 ML UDL PO SCH ×2 (08:50→20:59)
[2016-12-19] MEDS: levETIRAcetam 500 MG/5 ML UDCUP TUBE SCH ×2 (08:50→20:58)
[2016-12-19] MEDS: SENNOSIDES 17.6 MG/10 ML UDL - IF LIQUID ORDERED TUBE SCH ×2 (08:50→20:59)
[2016-12-19] MEDS: BACITRACIN ZINC 14.2 GM OINTTUBE TP SCH ×2 (09:12→21:31)
[2016-12-19] MEDS: ERTAPENEM 1 GM in NS 100 ML IV SCH (09:12)
[2016-12-19] MEDS: NOREPINEPHRINE/NS 500 ML IV SCH (09:13)
[2016-12-19] MEDS: FAMOTIDINE 20 MG TAB TUBE SCH (09:13)
[2016-12-19 09:20] LABS: % IMMATURE GRANULYOCYTES 1.4 % (0.0-1.1); ABSOLUTE IMMATURE GRANULOCYTES 0.21 10^3/uL (0.00-0.10); ABSOLUTE NRBC COUNT 0.03 10^3/uL (0-0.01); ADD DIFF? NO; ADD MORPH? NO; ADD SCAN? YES; FRAGMENT RBC FLAG 0 (0-99); HEMATOCRIT 25.9 % (40.0-51.0); HEMOGLOBIN 8.7 g/dL (13.7-17.5); LEFT SHIFT FLG 20 (0-99); LIPEMIA HEMOLYSIS FLAG 80 (0-99); MEAN CELL HEMOGLOBIN 32.1 pg (27.9-34.1); MEAN CELL HEMOGLOBIN CONCENTR. 33.6 g/dL (32.4-36.7); MEAN CELL VOLUME 95.6 fL (81.5-99.8); MEAN PLATELET VOLUME 9.6 fL (8.7-11.7); NRBC-AUTO% 0.2 % (0.0-0.2); PLATELET CLUMPS FLAG 30 (0-99); PLATELET COUNT 320 10^3/uL (150-400); RED BLOOD CELL COUNT 2.71 10^6/uL (4.40-6.38); RED CELL DISTRIBUTION WIDTH 14.1 % (11.5-15.2)
[2016-12-19 09:23] LABS: ATYPICAL LYMPHOCYTE FLAG 100 (0-99)
[2016-12-19 09:31] LABS: ANION GAP 10 mEq/L (8-16); CALCIUM 8.3 mg/dL (8.5-10.4); CARBON DIOXIDE 32 mEq/l (22-31); CHLORIDE 106 mEq/L (97-110); CREATININE 0.7 mg/dL (0.7-1.3); GLOMERULAR FILTRATION RATE > 60; GLUCOSE 106 mg/dL (70-100); POTASSIUM 3.6 mEq/L (3.5-5.2); SODIUM 148 mEq/L (134-144)
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
[2016-12-19] MEDS: LORazepam 2 MG/ML INJ IVP PRN ×5 (09:39→23:23)
[2016-12-19 09:40] LABS: SCAN NEGATIVE
--- NOTE | 2016-12-19 11:56 | GPN ---
[f rep st] PROCEDURE NOTE DATE OF PROCEDURE: 12/19/2016 PROCEDURE PERFORMED: Percutaneous endoscopic gastrostomy. INDICATIONS AND PREPROCEDURE DIAGNOSIS: Feeding difficulties. POSTPROCEDURE DIAGNOSIS: A 20-Serbian gastrostomy tube placed, outside bumper at 2.5 cm. PREMEDICATION: The patient is already on IV sedation. COMPLICATIONS: None. PROCEDURE IN DETAIL: After informed consent was obtained via the patient's sister, the patient remained in the supine position. Video upper endoscope was placed under direct visualization and advanced. Esophagus, stomach and small bowel were normal. After the skin was sterilized and appropriate light source was found, a finder needle was used and a 20-Serbian G-tube was placed using the pull technique. Of note, at the beginning of the procedure, the patient had an oral gastric tube in place. The tip of the OG tube was just barely past the lower esophageal sphincter and was not adequately suctioning the stomach. There was some bile in the dependent portion of the stomach, which I suctioned away. His OG tube was removed, as needed to make room for the PEG placement via the mouth. We were not able to place a 10-Serbian Dobbhoff feeding tube via the G- tube, as this size is too large for a G-tube. IMPRESSION: Gastrostomy tube placement, as above. PLAN: 1. Okay to use the G-tube today for feedings. 2. Would keep the 4x4 dressing over the G-tube site until this time tomorrow. Then, it can be removed, and the G tube bumper kept to open air. 3. Okay to cover the G-tube bumper in the future as needed with a dry slotted 4x4 as needed for oozing. 4. Okay to clean the G-tube site in the future with a 1:1 mix of water and hydrogen peroxide as needed for crusting. 5. When not being used for feedings, okay to use the G-tube for gastric suctioning, if needed. 6. Otherwise, further management as per his critical care team. If felt necessary, a smaller appropriate J tube could be inserted via this G-tube and advanced into the small bowel (under fluoroscopy, via radiology). Thank you for allowing me to help in the care of this patient. Please let me know if we can be of further help in the future. /[id number]/MODL MTDD
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
[2016-12-19 13:49] LABS: PROCALCITONIN 0.46 ng/mL (0.02-0.10)
--- NOTE | 2016-12-19 15:43 | WOCRNPDOC ---
WOCRN Advanced Assessment Note - Skin Integrity Problem, Advanced Assess Coccyx Dressing Type: Allevyn Life Dressing Description: Clean/Dry, Intact Integumentary Issue Intervention: Visualized Under Dressing Jaqui Wound Tissue: Blanching, Erythema Wound Bed Constitution: Healed Site Measurement - Head-to-Toe Length X Width X Depth (cm): 1x1x0 Pressure Injury Stage: Stage 2 Pressure Injury Present on Admit: Yes Skin Integrity Problem Comment: Wound has closed. Wound care will sign off. Please reconsult prn. Chary OSEGUERA in room for care.
[2016-12-19] MEDS: NS W/ 20 KCl/L 1,000 ML IV SCH (16:59)
[2016-12-19 17:40] LABS: POTASSIUM 3.5 mEq/L (3.5-5.2)
[2016-12-19] MEDS ORDERED: POTASSIUM CL 20 MEQ/15 ML UDCUP TUBE ONE (21:29)
[2016-12-19] MEDS: hydrALAZINE 20 MG/ML VIAL IVP PRN ×2 (21:31→22:10)
[2016-12-19] MEDS: guaiFENesin 200 MG/10 ML UDL TUBE SCH (21:31)
[2016-12-20] MEDS: hydrALAZINE 20 MG/ML VIAL IVP PRN (00:47)
[2016-12-20] MEDS: fentaNYL/NACL 100 ML IV SCH ×4 (00:56→19:34)
[2016-12-20] MEDS: LORazepam 2 MG/ML INJ IVP PRN ×6 (01:27→21:06)
[2016-12-20] MEDS: guaiFENesin 200 MG/10 ML UDL TUBE SCH (03:53)
[2016-12-20 04:23] LABS: ABSOLUTE NRBC COUNT 0.13 10^3/uL (0-0.01); ADD DIFF? YES; ADD MORPH? NO; ADD SCAN? YES; FRAGMENT RBC FLAG 0 (0-99); HEMATOCRIT 26.9 % (40.0-51.0); HEMOGLOBIN 8.9 g/dL (13.7-17.5); LEFT SHIFT FLG 40 (0-99); LIPEMIA HEMOLYSIS FLAG 80 (0-99); MEAN CELL HEMOGLOBIN 31.4 pg (27.9-34.1); MEAN CELL HEMOGLOBIN CONCENTR. 33.1 g/dL (32.4-36.7); MEAN CELL VOLUME 95.1 fL (81.5-99.8); MEAN PLATELET VOLUME 9.2 fL (8.7-11.7); NRBC-AUTO% 0.7 % (0.0-0.2); PLATELET CLUMPS FLAG 10 (0-99); PLATELET COUNT 352 10^3/uL (150-400); RED BLOOD CELL COUNT 2.83 10^6/uL (4.40-6.38)
[2016-12-20 04:27] LABS: ATYPICAL LYMPHOCYTE FLAG 120 (0-99)
[2016-12-20 04:57] LABS: ANION GAP 12 mEq/L (8-16); CALCIUM 8.5 mg/dL (8.5-10.4); CARBON DIOXIDE 30 mEq/l (22-31); CHLORIDE 107 mEq/L (97-110); CREATININE 0.6 mg/dL (0.7-1.3); GLOMERULAR FILTRATION RATE > 60; GLUCOSE 106 mg/dL (70-100); MAGNESIUM 2.1 mg/dL (1.6-2.3); POTASSIUM 3.5 mEq/L (3.5-5.2); SODIUM 149 mEq/L (134-144)
[2016-12-20] MEDS: METOCLOPRAMIDE 10 MG/2 ML VIAL IVP SCH ×3 (05:09→18:46)
[2016-12-20] MEDS: POTASSIUM Cl (KCl) 50 ML IV SCH ×3 (05:14→07:46)
[2016-12-20 05:22] LABS: PLATELET ESTIMATE ADEQUATE (ADEQ); POLYCHROMASIA 1+
[2016-12-20 07:21] LABS: SCAN POSITIVE
[2016-12-20] MEDS ORDERED: FUROSEMIDE 100 MG/10 ML VIAL IVP ONE (08:23)
[2016-12-20] MEDS: ERTAPENEM 1 GM in NS 100 ML IV SCH (08:59)
[2016-12-20] MEDS: BACITRACIN ZINC 14.2 GM OINTTUBE TP SCH ×2 (08:59→21:06)
[2016-12-20] MEDS: levETIRAcetam 500 MG/5 ML UDCUP TUBE SCH ×2 (08:59→21:05)
[2016-12-20] MEDS: SENNOSIDES 17.6 MG/10 ML UDL - IF LIQUID ORDERED TUBE SCH ×2 (08:59→21:05)
[2016-12-20] MEDS: CHLORHEXIDINE GLUCONATE 15 ML UDL PO SCH ×2 (09:00→21:05)
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
[2016-12-20] MEDS: AMIODARONE HCL 540 MG in D5W 300 ML IV SCH (09:55)
[2016-12-20] MEDS: LANSOPRAZOLE SUSP 30MG/10ML UDSYR (Adult) TUBE SCH (09:55)
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
[2016-12-20] MEDS: IPRATROPIUM/ALBUTEROL 4GM MDI IH SCH ×3 (11:32→21:04)
--- NOTE | 2016-12-20 11:52 | CPEKG ---
Heart Rate: 118 RR Interval: 508 QRSD Interval: 100 QT Interval: 316 QTC Interval: 443 QRS [place]: 58 T Wave [place]: -83 EKG Severity - ABNORMAL ECG - EKG Impression: ATRIAL FIBRILLATION EKG Impression: BORDERLINE INFERIOR Q WAVES EKG Impression: NONSPECIFIC REPOL ABNORMALITY, DIFFUSE LEADS Electronically Signed By: Matt Ramirez 20-Dec-2016 16:42:31
[2016-12-20 19:35] LABS: POTASSIUM 3.7 mEq/L (3.5-5.2)
[2016-12-20] MEDS ORDERED: POTASSIUM CL 10 MEQ TAB PO ONE (20:51)
[2016-12-21] MEDS: AMIODARONE HCL 200 ML IV SCH (01:41)
[2016-12-21] MEDS: METOCLOPRAMIDE 10 MG/2 ML VIAL IVP SCH ×3 (01:41→11:47)
[2016-12-21] MEDS: fentaNYL/NACL 100 ML IV SCH ×2 (02:33→09:18)
[2016-12-21] MEDS: IPRATROPIUM/ALBUTEROL 4GM MDI IH SCH ×4 (04:09→20:39)
[2016-12-21 04:10] LABS: IONIZED CALCIUM 1.09 MMOL/L (1.12-1.30)
[2016-12-21 04:17] LABS: ABSOLUTE NRBC COUNT 0.11 10^3/uL (0-0.01); ADD DIFF? YES; ADD MORPH? NO; ADD SCAN? NO; ATYPICAL LYMPHOCYTE FLAG 130 (0-99); FRAGMENT RBC FLAG 0 (0-99); HEMOGLOBIN 9.6 g/dL (13.7-17.5); LEFT SHIFT FLG 40 (0-99); LIPEMIA HEMOLYSIS FLAG 80 (0-99); MEAN CELL HEMOGLOBIN 31.4 pg (27.9-34.1); MEAN CELL HEMOGLOBIN CONCENTR. 33.1 g/dL (32.4-36.7); MEAN CELL VOLUME 94.8 fL (81.5-99.8); MEAN PLATELET VOLUME 9.6 fL (8.7-11.7); NRBC-AUTO% 0.6 % (0.0-0.2); PLATELET CLUMPS FLAG 0 (0-99); PLATELET COUNT 367 10^3/uL (150-400); RED BLOOD CELL COUNT 3.06 10^6/uL (4.40-6.38)
[2016-12-21 04:44] LABS: ANION GAP 9 mEq/L (8-16); CALCIUM 8.4 mg/dL (8.5-10.4); CARBON DIOXIDE 32 mEq/l (22-31); CHLORIDE 102 mEq/L (97-110); CREATININE 0.7 mg/dL (0.7-1.3); GLOMERULAR FILTRATION RATE > 60; GLUCOSE 120 mg/dL (70-100); POTASSIUM 3.8 mEq/L (3.5-5.2); SODIUM 143 mEq/L (134-144)
[2016-12-21] MEDS: LORazepam 2 MG/ML INJ IVP PRN ×2 (05:05→09:18)
[2016-12-21 05:07] LABS: PLATELET ESTIMATE ADEQUATE (ADEQ)
[2016-12-21 05:10] LABS: POLYCHROMASIA 1+
[2016-12-21] MEDS ORDERED: CALCIUM GLUCONATE 50 ML IV ONE (06:28)
[2016-12-21] MEDS ORDERED: POTASSIUM Cl (KCl) 50 ML IV ONE (06:28)
[2016-12-21] MEDS: BACITRACIN ZINC 14.2 GM OINTTUBE TP SCH ×2 (08:44→21:13)
[2016-12-21] MEDS: levETIRAcetam 500 MG/5 ML UDCUP TUBE SCH ×2 (08:44→20:04)
[2016-12-21] MEDS: CHLORHEXIDINE GLUCONATE 15 ML UDL PO SCH ×2 (08:44→20:04)
[2016-12-21] MEDS: ERTAPENEM 1 GM in NS 100 ML IV SCH (08:44)
[2016-12-21] MEDS: LANSOPRAZOLE SUSP 30MG/10ML UDSYR (Adult) TUBE SCH (08:44)
[2016-12-21] MEDS: SENNOSIDES 17.6 MG/10 ML UDL - IF LIQUID ORDERED TUBE SCH ×2 (08:44→20:05)
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
[2016-12-21] MEDS ORDERED: TRANEXAMIC ACID 650 MG in NS 100 ML IV ONE (10:43)
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
[2016-12-21] MEDS ORDERED: D10W 1,000 ML IV PRN (12:15)
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
[2016-12-21] MEDS ORDERED: FUROSEMIDE 40 MG/4 ML VIAL IVP ONE (13:25)
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
[2016-12-21 14:13] LABS: ABSOLUTE NRBC COUNT 0.05 10^3/uL (0-0.01); ADD DIFF? YES; ADD MORPH? NO; ADD SCAN? NO; ATYPICAL LYMPHOCYTE FLAG 90 (0-99); FRAGMENT RBC FLAG 0 (0-99); HEMATOCRIT 28.5 % (40.0-51.0); HEMOGLOBIN 9.5 g/dL (13.7-17.5); LEFT SHIFT FLG 50 (0-99); LIPEMIA HEMOLYSIS FLAG 80 (0-99); MEAN CELL HEMOGLOBIN 31.7 pg (27.9-34.1); MEAN CELL HEMOGLOBIN CONCENTR. 33.3 g/dL (32.4-36.7); MEAN PLATELET VOLUME 9.5 fL (8.7-11.7); NRBC-AUTO% 0.2 % (0.0-0.2); PLATELET CLUMPS FLAG 0 (0-99); PLATELET COUNT 374 10^3/uL (150-400); RED CELL DISTRIBUTION WIDTH 14.1 % (11.5-15.2)
[2016-12-21 14:22] LABS: INR 1.36 (0.83-1.16); PROTIME(PATIENT) 16.8 SEC (12.0-15.0)
[2016-12-21 14:23] LABS: APTT 33.3 SEC (23.0-38.0)
[2016-12-21] MEDS: OLANZapine DISINTEGR 5 MG TAB TUBE SCH ×2 (14:29→20:05)
[2016-12-21 14:34] LABS: ALANINE AMINOTRANSFERASE 41 IU/L (21-72); ALBUMIN 2.6 g/dL (3.5-5.0); ALKALINE PHOSPHATASE 70 IU/L (38-126); ANION GAP 8 mEq/L (8-16); ASPARTATE AMINOTRANSFERASE 35 IU/L (17-59); BILIRUBIN,TOTAL 0.8 mg/dL (0.1-1.4); CALCIUM 8.3 mg/dL (8.5-10.4); CARBON DIOXIDE 31 mEq/l (22-31); CHLORIDE 103 mEq/L (97-110); CREATININE 0.6 mg/dL (0.7-1.3); GLOMERULAR FILTRATION RATE > 60; GLUCOSE 114 mg/dL (70-100); SODIUM 142 mEq/L (134-144); TRIGLYCERIDE 97 mg/dL (40-150)
[2016-12-21 14:57] LABS: PLATELET ESTIMATE ADEQUATE (ADEQ)
[2016-12-21] MEDS: TRANEXAMIC ACID 650 MG in NS 100 ML IV SCH (20:05)
[2016-12-21] MEDS ORDERED: TPN 1 EA BAG IV SCH (21:00)
[2016-12-22] MEDS: AMIODARONE HCL 200 ML IV SCH (02:01)
[2016-12-22 04:42] LABS: IONIZED CALCIUM 1.11 MMOL/L (1.12-1.30)
[2016-12-22 04:46] LABS: ABSOLUTE NRBC COUNT 0.04 10^3/uL (0-0.01); ADD DIFF? YES; ADD MORPH? NO; ADD SCAN? NO; ATYPICAL LYMPHOCYTE FLAG 70 (0-99); FRAGMENT RBC FLAG 0 (0-99); HEMATOCRIT 30.1 % (40.0-51.0); HEMOGLOBIN 10.1 g/dL (13.7-17.5); LEFT SHIFT FLG 60 (0-99); LIPEMIA HEMOLYSIS FLAG 80 (0-99); MEAN CELL HEMOGLOBIN 31.3 pg (27.9-34.1); MEAN CELL HEMOGLOBIN CONCENTR. 33.6 g/dL (32.4-36.7); MEAN CELL VOLUME 93.2 fL (81.5-99.8); NRBC-AUTO% 0.1 % (0.0-0.2); PLATELET CLUMPS FLAG 10 (0-99); PLATELET COUNT 438 10^3/uL (150-400); RED BLOOD CELL COUNT 3.23 10^6/uL (4.40-6.38); RED CELL DISTRIBUTION WIDTH 13.6 % (11.5-15.2)
[2016-12-22 04:52] LABS: APTT 33.9 SEC (23.0-38.0); INR 1.42 (0.83-1.16); PROTIME(PATIENT) 17.3 SEC (12.0-15.0)
[2016-12-22 04:57] LABS: ALANINE AMINOTRANSFERASE 46 IU/L (21-72); ALBUMIN 2.8 g/dL (3.5-5.0); ALKALINE PHOSPHATASE 86 IU/L (38-126); ANION GAP 10 mEq/L (8-16); ASPARTATE AMINOTRANSFERASE 45 IU/L (17-59); CALCIUM 8.8 mg/dL (8.5-10.4); CARBON DIOXIDE 30 mEq/l (22-31); CHLORIDE 103 mEq/L (97-110); CREATININE 0.7 mg/dL (0.7-1.3); GLOMERULAR FILTRATION RATE > 60; GLUCOSE 124 mg/dL (70-100); POTASSIUM 3.8 mEq/L (3.5-5.2); SODIUM 143 mEq/L (134-144); TOTAL PROTEIN 5.6 g/dL (6.3-8.2)
[2016-12-22 05:13] LABS: PLATELET ESTIMATE INCREASED (ADEQ); POLYCHROMASIA 1+
[2016-12-22] MEDS: NS W/ 20 KCl/L 1,000 ML IV SCH (05:25)
[2016-12-22] MEDS: IPRATROPIUM/ALBUTEROL 4GM MDI IH SCH ×4 (05:32→23:20)
[2016-12-22] MEDS ORDERED: POTASSIUM Cl (KCl) 50 ML IV ONE (06:21)
[2016-12-22] MEDS ORDERED: CALCIUM GLUCONATE 50 ML IV ONE (06:22)
[2016-12-22] MEDS: BACITRACIN ZINC 14.2 GM OINTTUBE TP SCH ×2 (08:36→20:43)
[2016-12-22] MEDS: CHLORHEXIDINE GLUCONATE 15 ML UDL PO SCH ×2 (08:36→20:43)
[2016-12-22] MEDS: ERTAPENEM 1 GM in NS 100 ML IV SCH (08:39)
[2016-12-22] MEDS: TRANEXAMIC ACID 650 MG in NS 100 ML IV SCH ×2 (08:40→20:43)
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
[2016-12-22] MEDS ORDERED: AMIODARONE HCL 200 ML IV SCH (10:00)
[2016-12-22] MEDS ORDERED: AMIODARONE A.FIB-18HR INFSN (ORDER 3/3) IV SCH (10:00)
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
[2016-12-22] MEDS: LANSOPRAZOLE SUSP 30MG/10ML UDSYR (Adult) TUBE SCH (11:20)
[2016-12-22] MEDS: SENNOSIDES 17.6 MG/10 ML UDL - IF LIQUID ORDERED TUBE SCH ×2 (11:20→23:10)
[2016-12-22] MEDS: levETIRAcetam 500 MG/5 ML UDCUP TUBE SCH ×2 (11:20→20:42)
[2016-12-22] MEDS: OLANZapine DISINTEGR 5 MG TAB TUBE SCH ×2 (11:20→20:43)
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
[2016-12-22] MEDS: VANCOMYCIN 1.25 GM in D5W 250 ML IV SCH (13:32)
[2016-12-22] MEDS ORDERED: FUROSEMIDE 20 MG/2 ML VIAL IVP ONE (14:53)
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
[2016-12-22 15:12] LABS: COLOR YELLOW; LEUKOCYTE ESTERASE,URINE NEGATIVE (NEGATIVE); NITRITE,URINE NEGATIVE (NEGATIVE)
[2016-12-22 15:14] LABS: MUCUS TRACE /lpf (NONE-1+); RBC,URINE 50-182 /hpf (0-3)
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
[2016-12-22] MEDS: PIPERACILLIN/TAZO 3.375 GM/DEX 50 ML IV SCH (17:23)
[2016-12-22] MEDS: TPN W/ FAMOTIDINE 1 EA BAG IV SCH (20:44)
[2016-12-23] MEDS: PIPERACILLIN/TAZO 3.375 GM/DEX 50 ML IV SCH ×5 (00:17→23:44)
[2016-12-23] MEDS: VANCOMYCIN 1.25 GM in D5W 250 ML IV SCH ×2 (00:51→14:16)
[2016-12-23 04:37] LABS: IONIZED CALCIUM 1.16 MMOL/L (1.12-1.30)
[2016-12-23 04:38] LABS: ADD DIFF? YES; ADD MORPH? NO; ADD SCAN? NO; ATYPICAL LYMPHOCYTE FLAG 60 (0-99); FRAGMENT RBC FLAG 0 (0-99); HEMATOCRIT 29.8 % (40.0-51.0); HEMOGLOBIN 10.2 g/dL (13.7-17.5); LEFT SHIFT FLG 50 (0-99); LIPEMIA HEMOLYSIS FLAG 90 (0-99); MEAN CELL HEMOGLOBIN 31.3 pg (27.9-34.1); MEAN CELL HEMOGLOBIN CONCENTR. 34.2 g/dL (32.4-36.7); MEAN CELL VOLUME 91.4 fL (81.5-99.8); PLATELET CLUMPS FLAG 0 (0-99); PLATELET COUNT 427 10^3/uL (150-400); RED BLOOD CELL COUNT 3.26 10^6/uL (4.40-6.38); RED CELL DISTRIBUTION WIDTH 13.4 % (11.5-15.2)
[2016-12-23 04:57] LABS: APTT 32.4 SEC (23.0-38.0); INR 1.28 (0.83-1.16)
[2016-12-23 05:14] LABS: PLATELET ESTIMATE ADEQUATE (ADEQ)
[2016-12-23 05:15] LABS: HYPOCHROMIA 1+; POLYCHROMASIA 1+
[2016-12-23 05:23] LABS: ALANINE AMINOTRANSFERASE 46 IU/L (21-72); ALBUMIN 2.6 g/dL (3.5-5.0); ALKALINE PHOSPHATASE 76 IU/L (38-126); ANION GAP 11 mEq/L (8-16); ASPARTATE AMINOTRANSFERASE 45 IU/L (17-59); BILIRUBIN,TOTAL 0.9 mg/dL (0.1-1.4); CALCIUM 8.5 mg/dL (8.5-10.4); CARBON DIOXIDE 27 mEq/l (22-31); CHLORIDE 101 mEq/L (97-110); CREATININE 0.7 mg/dL (0.7-1.3); GLOMERULAR FILTRATION RATE > 60; GLUCOSE 132 mg/dL (70-100); MAGNESIUM 1.9 mg/dL (1.6-2.3); POTASSIUM 3.6 mEq/L (3.5-5.2); SODIUM 139 mEq/L (134-144); TOTAL PROTEIN 5.5 g/dL (6.3-8.2)
[2016-12-23] MEDS: IPRATROPIUM/ALBUTEROL 4GM MDI IH SCH ×4 (05:30→20:55)
[2016-12-23] MEDS ORDERED: POTASSIUM CL 10 MEQ TAB PO ONE ×2 (07:48→19:25)
[2016-12-23] MEDS: NS W/ 20 KCl/L 1,000 ML IV SCH ×2 (08:14→14:16)
[2016-12-23] MEDS: levETIRAcetam 500 MG/5 ML UDCUP TUBE SCH ×2 (08:14→20:38)
[2016-12-23] MEDS: OLANZapine DISINTEGR 5 MG TAB TUBE SCH ×2 (08:15→20:39)
[2016-12-23] MEDS ORDERED: POTASSIUM CL 20 MEQ/15 ML UDCUP TUBE ONE ×2 (08:15→21:00)
[2016-12-23] MEDS: BACITRACIN ZINC 14.2 GM OINTTUBE TP SCH ×2 (08:16→20:39)
[2016-12-23] MEDS: CHLORHEXIDINE GLUCONATE 15 ML UDL PO SCH ×2 (08:20→20:38)
[2016-12-23] MEDS: SENNOSIDES 17.6 MG/10 ML UDL - IF LIQUID ORDERED TUBE SCH ×2 (08:21→20:40)
[2016-12-23] MEDS: TRANEXAMIC ACID 650 MG in NS 100 ML IV SCH ×2 (08:21→21:17)
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
[2016-12-23] MEDS ORDERED: PROTOCOL POTASSIUM 1 DOSE MISC PRN (09:13)
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
[2016-12-23] MEDS: ALTEPLASE 2 MG VIAL IVP PRN (13:45)
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
[2016-12-23 18:52] LABS: POTASSIUM 3.9 mEq/L (3.5-5.2)
[2016-12-23] MEDS ORDERED: POTASSIUM CL 20 MEQ/15 ML UDCUP ONE (20:32)
[2016-12-23] MEDS: FAMOTIDINE 20 MG TAB TUBE SCH (20:39)
[2016-12-23] MEDS: AMIODARONE HCL 200 MG TAB TUBE SCH (20:39)
[2016-12-23] MEDS: TPN W/ FAMOTIDINE 1 EA BAG IV SCH (20:40)
[2016-12-24] MEDS: VANCOMYCIN 1.25 GM in D5W 250 ML IV SCH ×2 (00:40→14:09)
[2016-12-24] MEDS: METOCLOPRAMIDE 10 MG/2 ML VIAL IVP SCH ×4 (00:43→14:31)
[2016-12-24 04:48] LABS: IONIZED CALCIUM 1.12 MMOL/L (1.12-1.30)
[2016-12-24] MEDS: IPRATROPIUM/ALBUTEROL 4GM MDI IH SCH ×4 (05:00→22:43)
[2016-12-24 05:01] LABS: INR 1.23 (0.83-1.16); PROTIME(PATIENT) 15.5 SEC (12.0-15.0)
[2016-12-24 05:02] LABS: APTT 30.1 SEC (23.0-38.0)
[2016-12-24 05:03] LABS: ADD DIFF? YES; ADD MORPH? NO; ATYPICAL LYMPHOCYTE FLAG 50 (0-99); FRAGMENT RBC FLAG 0 (0-99); HEMATOCRIT 29.9 % (40.0-51.0); HEMOGLOBIN 10.2 g/dL (13.7-17.5); LEFT SHIFT FLG 60 (0-99); LIPEMIA HEMOLYSIS FLAG 90 (0-99); MEAN CELL HEMOGLOBIN CONCENTR. 34.1 g/dL (32.4-36.7); MEAN CELL VOLUME 90.9 fL (81.5-99.8); MEAN PLATELET VOLUME 10.1 fL (8.7-11.7); PLATELET CLUMPS FLAG 0 (0-99); PLATELET COUNT 466 10^3/uL (150-400); RED BLOOD CELL COUNT 3.29 10^6/uL (4.40-6.38); RED CELL DISTRIBUTION WIDTH 13.7 % (11.5-15.2)
[2016-12-24 05:04] LABS: ADD SCAN? NO
[2016-12-24 05:07] LABS: ALANINE AMINOTRANSFERASE 62 IU/L (21-72); ALBUMIN 2.8 g/dL (3.5-5.0); ALKALINE PHOSPHATASE 85 IU/L (38-126); ANION GAP 9 mEq/L (8-16); ASPARTATE AMINOTRANSFERASE 68 IU/L (17-59); BILIRUBIN,TOTAL 0.8 mg/dL (0.1-1.4); CALCIUM 8.4 mg/dL (8.5-10.4); CARBON DIOXIDE 25 mEq/l (22-31); CHLORIDE 103 mEq/L (97-110); CREATININE 0.7 mg/dL (0.7-1.3); GLOMERULAR FILTRATION RATE > 60; GLUCOSE 120 mg/dL (70-100); MAGNESIUM 2.1 mg/dL (1.6-2.3); POTASSIUM 4.1 mEq/L (3.5-5.2); SODIUM 137 mEq/L (134-144); TOTAL PROTEIN 5.7 g/dL (6.3-8.2)
[2016-12-24 05:33] LABS: PLATELET ESTIMATE INCREASED (ADEQ); POLYCHROMASIA 1+
[2016-12-24] MEDS ORDERED: CALCIUM GLUCONATE 50 ML IV ONE (05:39)
[2016-12-24] MEDS: PIPERACILLIN/TAZO 3.375 GM/DEX 50 ML IV SCH (05:44)
[2016-12-24 08:10] LABS: PCO2 VENOUS 40 mmHg (40-44); PH VENOUS BLOOD 7.45 (7.31-7.42); PO2 VENOUS 41 mmHg (35-40); TCO2 VENOUS 29 mEq/L (23-27); VEN MEASURED OXYGEN SATURATION 73 % (65-75)
[2016-12-24 08:12] LABS: O2 CONCENTRATIION 35 % (0-100)
[2016-12-24] MEDS: levETIRAcetam 500 MG/5 ML UDCUP TUBE SCH ×2 (08:13→21:24)
[2016-12-24] MEDS: CHLORHEXIDINE GLUCONATE 15 ML UDL PO SCH ×2 (08:14→21:34)
[2016-12-24] MEDS: OLANZapine DISINTEGR 5 MG TAB TUBE SCH ×2 (08:14→21:26)
[2016-12-24] MEDS: TRANEXAMIC ACID 650 MG in NS 100 ML IV SCH (08:14)
[2016-12-24] MEDS: SENNOSIDES 17.6 MG/10 ML UDL - IF LIQUID ORDERED TUBE SCH ×2 (08:14→21:39)
[2016-12-24] MEDS: BACITRACIN ZINC 14.2 GM OINTTUBE TP SCH ×2 (08:14→21:35)
[2016-12-24] MEDS: AMIODARONE HCL 200 MG TAB TUBE SCH ×2 (08:14→21:26)
[2016-12-24] MEDS: FAMOTIDINE 20 MG TAB TUBE SCH ×2 (08:14→21:26)
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
[2016-12-24] MEDS ORDERED: OLANZapine DISINTEGR 10 MG TAB PO ONE (12:00)
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
[2016-12-24] MEDS: morphINE 10 MG/0.5 ML UDSYR TUBE PRN ×3 (14:09→23:50)
[2016-12-24] MEDS ORDERED: TRANEXAMIC ACID 650 MG TAB PO SCH (21:00)
[2016-12-24] MEDS: TRANEXAMIC ACID 650 MG TAB PO SCH (21:29)
[2016-12-24] MEDS: ALTEPLASE 2 MG VIAL IVP PRN (23:37)
[2016-12-25] MEDS: METOCLOPRAMIDE 10 MG/2 ML VIAL IVP SCH ×5 (00:46→23:55)
[2016-12-25] MEDS: VANCOMYCIN 1.25 GM in D5W 250 ML IV SCH ×2 (00:49→12:23)
[2016-12-25] MEDS: morphINE 10 MG/0.5 ML UDSYR TUBE PRN ×2 (03:23→23:56)
[2016-12-25] MEDS: IPRATROPIUM/ALBUTEROL 4GM MDI IH SCH ×4 (04:31→21:28)
[2016-12-25 04:52] LABS: % IMMATURE GRANULYOCYTES 1.8 % (0.0-1.1); ADD DIFF? NO; ADD MORPH? NO; ADD SCAN? YES; FRAGMENT RBC FLAG 0 (0-99); HEMATOCRIT 28.3 % (40.0-51.0); HEMOGLOBIN 9.5 g/dL (13.7-17.5); IONIZED CALCIUM 1.11 MMOL/L (1.12-1.30); LEFT SHIFT FLG 60 (0-99); LIPEMIA HEMOLYSIS FLAG 80 (0-99); MEAN CELL HEMOGLOBIN 30.9 pg (27.9-34.1); MEAN CELL HEMOGLOBIN CONCENTR. 33.6 g/dL (32.4-36.7); MEAN CELL VOLUME 92.2 fL (81.5-99.8); MEAN PLATELET VOLUME 10.5 fL (8.7-11.7); PLATELET CLUMPS FLAG 10 (0-99); PLATELET COUNT 470 10^3/uL (150-400); RED BLOOD CELL COUNT 3.07 10^6/uL (4.40-6.38); RED CELL DISTRIBUTION WIDTH 13.8 % (11.5-15.2)
[2016-12-25 05:02] LABS: INR 1.17 (0.83-1.16); PROTIME(PATIENT) 14.9 SEC (12.0-15.0)
[2016-12-25 05:03] LABS: APTT 22.2 SEC (23.0-38.0)
[2016-12-25 05:06] LABS: ALANINE AMINOTRANSFERASE 81 IU/L (21-72); ALBUMIN 2.7 g/dL (3.5-5.0); ALKALINE PHOSPHATASE 91 IU/L (38-126); ANION GAP 12 mEq/L (8-16); ASPARTATE AMINOTRANSFERASE 77 IU/L (17-59); BILIRUBIN,TOTAL 0.7 mg/dL (0.1-1.4); CALCIUM 8.4 mg/dL (8.5-10.4); CARBON DIOXIDE 26 mEq/l (22-31); CHLORIDE 104 mEq/L (97-110); CREATININE 0.7 mg/dL (0.7-1.3); GLOMERULAR FILTRATION RATE > 60; GLUCOSE 107 mg/dL (70-100); MAGNESIUM 2.2 mg/dL (1.6-2.3); POTASSIUM 4.1 mEq/L (3.5-5.2); SODIUM 142 mEq/L (134-144); TOTAL PROTEIN 5.7 g/dL (6.3-8.2); TRIGLYCERIDE 91 mg/dL (40-150)
[2016-12-25 05:10] LABS: ATYPICAL LYMPHOCYTE FLAG 120 (0-99)
[2016-12-25] MEDS ORDERED: CALCIUM GLUCONATE 50 ML IV ONE (05:14)
[2016-12-25 05:18] LABS: SCAN NEGATIVE
[2016-12-25] MEDS ORDERED: AMIODARONE 18HR INFSN (ORDER 3/3) IV ONE (07:30)
[2016-12-25] MEDS ORDERED: [UNRECOGNIZED DRUG - REMARK] IV ONE (07:30)
[2016-12-25] MEDS ORDERED: [UNRECOGNIZED DRUG - REMARK] IV ONE (07:30)
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
[2016-12-25] MEDS: FAMOTIDINE 20 MG TAB TUBE SCH ×2 (09:47→20:10)
[2016-12-25] MEDS: levETIRAcetam 500 MG/5 ML UDCUP TUBE SCH ×2 (09:47→20:10)
[2016-12-25] MEDS: OLANZapine DISINTEGR 5 MG TAB TUBE SCH ×2 (09:47→20:10)
[2016-12-25] MEDS: TRANEXAMIC ACID 650 MG TAB PO SCH ×2 (09:47→20:10)
[2016-12-25] MEDS: AMIODARONE HCL 200 MG TAB TUBE SCH ×2 (09:47→20:10)
[2016-12-25] MEDS: CHLORHEXIDINE GLUCONATE 15 ML UDL PO SCH ×2 (09:48→20:10)
[2016-12-25] MEDS: BACITRACIN ZINC 14.2 GM OINTTUBE TP SCH ×2 (09:48→20:11)
[2016-12-25] MEDS: SENNOSIDES 17.6 MG/10 ML UDL - IF LIQUID ORDERED TUBE SCH ×2 (09:48→20:11)
[2016-12-25] MEDS: NS W/ 20 KCl/L 1,000 ML IV SCH (11:48)
[2016-12-25] MEDS: LOPERAMIDE HCL 2 MG CAP PO PRN ×2 (15:47→15:48)
[2016-12-25] MEDS: SCOPOLAMINE HYDROBROMIDE 1.5 MG PATCH TD SCH (15:49)
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
--- NOTE | 2016-12-25 19:16 | WOCRNPDOC ---
WOCRN Advanced Assessment Note - Skin Integrity Problem, Advanced Assess Sternum Pressure injury Dressing Type: Polymem Dressing Description: Intact, Shadowed Exudate Amount: Moderate Exudate Color: Yellow Exudate Characteristic(s): Clear, Thick Integumentary Issue Intervention: Dressing Changed Edenilson Wound Tissue: Blanching (Around suture sites and other areas to the left of the tracheostomy site), Erythema, Non-blanching (directly edenilson wound) Edenilosn Wound Swelling: Mild Wound Bed Color: Red, Yellow Wound Bed Constitution: Smooth Tissue (non granular pink), Adhered Slough (50%) Site Odor: None Site Measurement - Head-to-Toe Length X Width X Depth (cm): 1.8x3x0.3 Pressure Injury Stage: Unstageable, Hospital Chief Executive Officer Related Pressure Injury Pressure Injury Present on Admit: No Skin Integrity Problem Comment: Hospital acquired, device related, unstagable full thickness pressure injury on right proximal sternum/clavicle. It is from distal faceplate of tracheostomy. This is complicated by the poarch j collar that patient needs to wear, as it presses on faceplate as well. Per report from RN sutures were removed today. The tissue around the each suture site is necrotic around 0.2x0.2x0 and 100% slough. Polymem dressing was removed and a Algidex Ag+ trach dressing. Wound care will round again in am to visualize wound and check dressing. Will try and coordinate with RT. Gina RN in room for care, RT and ELECTRICAL MAINTENANCE TECHNICIAN as well. Created and placed an offloading "bumper" out of a trach tie, troy and mepilex transfer. Placed this under distal faceplate to help offload sternum.
[2016-12-25 19:56] LABS: POTASSIUM 4.1 mEq/L (3.5-5.2)
[2016-12-25] MEDS: ACETAMINOPHEN 325 MG TAB TUBE PRN (20:10)
--- NOTE | 2016-12-26 01:37 | TRAUMAPN ---
Assessment/Plan: PAD#15 POD#15 Assessment: Limited resuscitation parameters - shock to cardiovert, no compressions. 1) DVT prophylaxis - Can not use chemical prophylaxis, Compliance with SCDs marginal 2) Neurologic - much more active today occasionally responding to his name by looking in the direction of phonation. 3) Tube feeds at goal 4) diarrhea noted 5) suture lines intact 6) planned trach change delayed until tomorrow 7) pressure wounds from trach and trach sutures addressed by wound care 8) awaiting LTAC availability 9) etiology of leucocytosis unclear - antibiotics stopped. 10) Afib rate controlled with amio po (NSR) 11) Secretions still an issue - transcope patch tried 12) C-spine still no cleared Plan: use sitter continually continue SCDs continue tube feeds keep gayle in for several more days change trach maintain c-collar Subjective: non-communicative Objective: Vital Signs Temp Pulse Resp BP Pulse Ox 36.7 C 79 18 100/52 L 99 12/26/16 00:00 12/26/16 00:00 12/26/16 00:00 12/26/16 00:00 12/26/16 00:00 Laboratory Results 12/25/16 04:20 12/25/16 19:30 12/24/16 12/25/16 12/26/16 05:59 05:59 05:59 Intake Total 3042 2953 1533 Output Total 590 2 Balance 2452 2951 1533 PT 14.9 SEC (12.0-15.0) 12/25/16 04:20 INR 1.17 (0.83-1.16) H 12/25/16 04:20 - C-Spine Clearance Cervical Spine Cleared: No Physical Exam - Physical Exam General Appearance: alert, other (anxious) EENT: other (scalp suture line intact) Neck: other (in Howard J collar) Respiratory: chest non-tender, lungs clear, normal breath sounds Cardiac/Chest: regular rate, rhythm Abdomen: normal bowel sounds, non-tender, soft Male Genitalia: deferred Rectal: deferred Back: Normal inspection Skin: normal color, warm/dry Lymphatic: no adenopathy Extremities: normal range of motion, other (moving actively, strong) Neuro/Psych: other (ppossibly oriented to person, assisted in transfer!) Time Spent w/Patient (minutes): 30 (critical care review)
[2016-12-26] MEDS: morphINE 10 MG/0.5 ML UDSYR TUBE PRN ×2 (03:40→06:21)
[2016-12-26 04:58] LABS: IONIZED CALCIUM 1.11 MMOL/L (1.12-1.30)
[2016-12-26 05:12] LABS: INR 1.18 (0.83-1.16)
[2016-12-26 05:22] LABS: % IMMATURE GRANULYOCYTES 1.6 % (0.0-1.1); ABSOLUTE IMMATURE GRANULOCYTES 0.26 10^3/uL (0.00-0.10); ADD DIFF? NO; ADD MORPH? NO; ADD SCAN? YES; FRAGMENT RBC FLAG 0 (0-99); HEMATOCRIT 28.3 % (40.0-51.0); HEMOGLOBIN 9.7 g/dL (13.7-17.5); LEFT SHIFT FLG 30 (0-99); LIPEMIA HEMOLYSIS FLAG 90 (0-99); MEAN CELL HEMOGLOBIN 31.4 pg (27.9-34.1); MEAN CELL HEMOGLOBIN CONCENTR. 34.3 g/dL (32.4-36.7); MEAN CELL VOLUME 91.6 fL (81.5-99.8); MEAN PLATELET VOLUME 10.2 fL (8.7-11.7); PLATELET CLUMPS FLAG 0 (0-99); PLATELET COUNT 606 10^3/uL (150-400); RED BLOOD CELL COUNT 3.09 10^6/uL (4.40-6.38); RED CELL DISTRIBUTION WIDTH 13.7 % (11.5-15.2)
[2016-12-26 05:25] LABS: ATYPICAL LYMPHOCYTE FLAG 120 (0-99)
[2016-12-26] MEDS ORDERED: CALCIUM GLUCONATE 50 ML IV ONE (05:28)
[2016-12-26 05:30] LABS: ANION GAP 10 mEq/L (8-16); CALCIUM 8.7 mg/dL (8.5-10.4); CARBON DIOXIDE 26 mEq/l (22-31); CHLORIDE 106 mEq/L (97-110); CREATININE 0.7 mg/dL (0.7-1.3); GLOMERULAR FILTRATION RATE > 60; GLUCOSE 119 mg/dL (70-100); MAGNESIUM 2.5 mg/dL (1.6-2.3); POTASSIUM 4.3 mEq/L (3.5-5.2); SODIUM 142 mEq/L (134-144)
[2016-12-26] MEDS: IPRATROPIUM/ALBUTEROL 4GM MDI IH SCH ×4 (05:36→21:05)
[2016-12-26 05:50] LABS: SCAN NEGATIVE
[2016-12-26] MEDS: AMIODARONE HCL 200 MG TAB TUBE SCH ×2 (08:08→21:30)
[2016-12-26] MEDS: CHLORHEXIDINE GLUCONATE 15 ML UDL PO SCH ×2 (08:08→21:31)
[2016-12-26] MEDS: BACITRACIN ZINC 14.2 GM OINTTUBE TP SCH ×2 (08:08→21:31)
[2016-12-26] MEDS: levETIRAcetam 500 MG/5 ML UDCUP TUBE SCH ×2 (08:08→21:30)
[2016-12-26] MEDS: OLANZapine DISINTEGR 5 MG TAB TUBE SCH ×2 (08:08→21:30)
[2016-12-26] MEDS: FAMOTIDINE 20 MG TAB TUBE SCH ×2 (08:08→21:32)
[2016-12-26] MEDS: TRANEXAMIC ACID 650 MG TAB PO SCH ×2 (08:08→21:30)
[2016-12-26] MEDS: LOPERAMIDE HCL 2 MG CAP PO PRN ×2 (08:13→08:15)
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
[2016-12-26] MEDS: SENNOSIDES 17.6 MG/10 ML UDL - IF LIQUID ORDERED TUBE SCH ×2 (09:52→21:32)
--- NOTE | 2016-12-26 13:03 | WOCRNPDOC ---
WOCRN Advanced Assessment Note - Skin Integrity Problem, Advanced Assess Sternum Pressure injury Dressing Type: Non-Bordered Foam (ag+ algidex trach dressing) Dressing Description: Intact, Shadowed Exudate Color: Clear, Yellow Exudate Characteristic(s): Cloudy, Thick Integumentary Issue Intervention: Dressing Changed Jaqui Wound Tissue: Erythema Wound Bed Color: [place], Yellow Wound Bed Constitution: Granulation Tissue, Adhered Slough Wound Edges: Not Attached, Well Defined Pressure Injury Stage: Unstageable Skin Integrity Problem Comment: Changed dressing while Dr. Rodriguez changed out trach with RT, and Gina RN and in room. Area cleaned with gauze. 60% of wound is granular with 40% adhered slough. Alleyvn trach dressing placed. Wound care will round tomorrow to see wound again.
[2016-12-26] MEDS: NS W/ 20 KCl/L 1,000 ML IV SCH (13:15)
--- NOTE | 2016-12-26 16:00 | TRAUMAPN ---
Assessment/Plan: PAD#16 POD#16 Assessment: Limited resuscitation parameters - shock to cardiovert, no compressions. 1) DVT prophylaxis - Can not use chemical prophylaxis, Compliance with SCDs marginal 2) Neurologic - much more active today occasionally responding to his name by looking in the direction of phonation. Has walked down leonard with assistance!! Seems more interactive. 3) Tube feeds at goal 4) diarrhea noted 5) suture lines intact. Facial sutures removed 6) trach change occured - Down sized from an 8 to 6 successfully 7) pressure wounds from trach not impacted by new trach. Photographic documentation by wound care noted. 8) awaiting LTAC availability 9) etiology of leucocytosis unclear - antibiotics stopped. 10) Afib rate controlled with amio po (NSR) 11) Secretions still an issue but less with transcope patch 12) C-spine still not cleared Plan: use sitter continually continue SCDs continue tube feeds keep gayle in for several more days maintain c-collar Subjective: still nonverbal. no quite communicating Objective: Vital Signs Temp Pulse Resp BP Pulse Ox 36.8 C 89 16 105/57 L 98 12/26/16 07:00 12/26/16 14:00 12/26/16 14:00 12/26/16 14:00 12/26/16 14:00 Laboratory Results 12/26/16 04:35 12/26/16 04:35 12/25/16 12/26/16 12/27/16 05:59 05:59 05:59 Intake Total 2953 2659 Output Total 2 Balance 2951 2659 PT 15.0 SEC (12.0-15.0) 12/26/16 04:35 INR 1.18 (0.83-1.16) H 12/26/16 04:35 - C-Spine Clearance Cervical Spine Cleared: No Physical Exam - Physical Exam General Appearance: no apparent distress Respiratory: chest non-tender, lungs clear, normal breath sounds, other (less sputum but still thick green.) Abdomen: normal bowel sounds, non-tender, soft Male Genitalia: deferred Rectal: deferred Back: Normal inspection Skin: normal color, warm/dry Extremities: normal range of motion Time Spent w/Patient (minutes): 25 (critical care/trach issues)
[2016-12-26 18:27] LABS: POTASSIUM 4.3 mEq/L (3.5-5.2)
[2016-12-27] MEDS: ACETAMINOPHEN 325 MG TAB TUBE PRN (00:08)
[2016-12-27 04:27] LABS: ANION GAP 10 mEq/L (8-16); CALCIUM 8.6 mg/dL (8.5-10.4); CARBON DIOXIDE 23 mEq/l (22-31); CHLORIDE 106 mEq/L (97-110); CREATININE 0.8 mg/dL (0.7-1.3); GLOMERULAR FILTRATION RATE > 60; GLUCOSE 109 mg/dL (70-100); POTASSIUM 4.4 mEq/L (3.5-5.2); SODIUM 139 mEq/L (134-144)
[2016-12-27] MEDS: IPRATROPIUM/ALBUTEROL 4GM MDI IH SCH ×4 (06:10→20:53)
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
[2016-12-27] MEDS: OLANZapine DISINTEGR 5 MG TAB TUBE SCH ×2 (09:35→20:27)
[2016-12-27] MEDS: TRANEXAMIC ACID 650 MG TAB PO SCH (09:35)
[2016-12-27] MEDS: SENNOSIDES 17.6 MG/10 ML UDL - IF LIQUID ORDERED TUBE SCH ×2 (09:35→20:27)
[2016-12-27] MEDS: levETIRAcetam 500 MG/5 ML UDCUP TUBE SCH ×2 (09:35→20:27)
[2016-12-27] MEDS: BACITRACIN ZINC 14.2 GM OINTTUBE TP SCH ×2 (09:35→20:26)
[2016-12-27] MEDS: FAMOTIDINE 20 MG TAB TUBE SCH ×2 (09:35→20:27)
[2016-12-27] MEDS: CHLORHEXIDINE GLUCONATE 15 ML UDL PO SCH ×2 (09:35→22:23)
[2016-12-27] MEDS: AMIODARONE HCL 200 MG TAB TUBE SCH ×2 (09:35→20:26)
[2016-12-27] MEDS ORDERED: LOPERAMIDE HCL 2 MG CAP TUBE PRN (09:37)
[2016-12-27] MEDS ORDERED: HYDROmorphONE/DILAUDID 2 MG TAB TUBE PRN (10:28)
--- NOTE | 2016-12-27 10:35 | TRAUMAPN ---
Assessment/Plan: PAD#17 POD#17 Assessment: Limited resuscitation parameters - shock to cardiovert, no compressions. 1) DVT prophylaxis - Can not use chemical prophylaxis, Compliance with SCDs marginal, Will get FU CT today 2) Neurologic - much more active today occasionally responding to his name by looking in the direction of phonation. Has walked down leonard with assistance!! Seems more interactive. 3) Tube feeds at goal 4) diarrhea resolving somewhat 5) suture lines intact. Facial sutures removed 6) trach capping tolerated. He intermittently decannulates himself and seems to tolerate it. 7) pressure wounds from trach. no yet seen today. 8) awaiting LTAC availability - possible inpatient rehab 9) etiology of leucocytosis unclear - antibiotics stopped. 10) Afib rate controlled with amio po (NSR) 11) Secretions still an issue but less with transcope patch 12) C-spine still not cleared Plan: CT head today will try to change tube feeds to bolus feeds use sitter continually continue SCDs keep gayle in for several more days maintain c-collar will leave trach out when he decannulates himself again Objective: Vital Signs Temp Pulse Resp BP Pulse Ox 36.6 C 80 18 102/58 L 95 12/26/16 22:00 12/27/16 09:12 12/27/16 09:12 12/27/16 06:00 12/27/16 09:12 Laboratory Results 12/26/16 04:35 12/27/16 03:40 12/26/16 12/27/16 12/28/16 05:59 05:59 05:59 Intake Total 2659 831 Balance 2659 831 PT 15.0 SEC (12.0-15.0) 12/26/16 04:35 INR 1.18 (0.83-1.16) H 12/26/16 04:35 - C-Spine Clearance Cervical Spine Cleared: No Physical Exam - Physical Exam General Appearance: other (active but not necessarly interactive) EENT: other (trach tube in place. patient tolerating capping of trach) Neck: other (C-collar in place) Respiratory: chest non-tender, lungs clear, normal breath sounds Cardiac/Chest: regular rate, rhythm Abdomen: normal bowel sounds, non-tender, other (PEG tube in place) Male Genitalia: deferred Rectal: deferred Skin: normal color, warm/dry Time Spent w/Patient (minutes): 25
[2016-12-27] MEDS ORDERED: DIAZEPAM 10 MG/2 ML SYR IVP ONE ×2 (11:00→15:15)
[2016-12-27] MEDS ORDERED: PROPRANOLOL HCL PO SCH (16:00)
[2016-12-27] MEDS: PROPRANOLOL HCL 10 MG TAB TUBE SCH ×2 (18:19→22:22)
[2016-12-27] MEDS: ENOXAPARIN 30 MG/0.3 ML SYR SC SCH (20:26)
[2016-12-28 04:52] LABS: ABSOLUTE NRBC COUNT 0.03 10^3/uL (0-0.01); ADD DIFF? YES; ADD MORPH? NO; FRAGMENT RBC FLAG 0 (0-99); HEMATOCRIT 27.7 % (40.0-51.0); HEMOGLOBIN 9.2 g/dL (13.7-17.5); LEFT SHIFT FLG 30 (0-99); LIPEMIA HEMOLYSIS FLAG 80 (0-99); MEAN CELL HEMOGLOBIN 30.8 pg (27.9-34.1); MEAN CELL HEMOGLOBIN CONCENTR. 33.2 g/dL (32.4-36.7); MEAN CELL VOLUME 92.6 fL (81.5-99.8); MEAN PLATELET VOLUME 9.5 fL (8.7-11.7); NRBC-AUTO% 0.2 % (0.0-0.2); PLATELET CLUMPS FLAG 0 (0-99); PLATELET COUNT 695 10^3/uL (150-400); RED BLOOD CELL COUNT 2.99 10^6/uL (4.40-6.38); RED CELL DISTRIBUTION WIDTH 14.2 % (11.5-15.2)
[2016-12-28 04:58] LABS: ADD SCAN? NO; ATYPICAL LYMPHOCYTE FLAG 120 (0-99)
[2016-12-28 05:02] LABS: POTASSIUM 4.4 mEq/L (3.5-5.2)
[2016-12-28 05:46] LABS: MACROCYTES 1+; POLYCHROMASIA 1+
[2016-12-28 05:47] LABS: PLATELET ESTIMATE INCREASED (ADEQ)
[2016-12-28] MEDS: IPRATROPIUM/ALBUTEROL 4GM MDI IH SCH ×4 (06:36→21:45)
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
[2016-12-28] MEDS ORDERED: ACETAMINOPHEN 650 MG/20.3 ML UDCUP TUBE PRN (08:17)
[2016-12-28] MEDS: OLANZapine DISINTEGR 5 MG TAB TUBE SCH ×2 (09:01→21:03)
[2016-12-28] MEDS: levETIRAcetam 500 MG/5 ML UDCUP TUBE SCH ×2 (09:01→21:04)
[2016-12-28] MEDS: SENNOSIDES 17.6 MG/10 ML UDL - IF LIQUID ORDERED TUBE SCH ×2 (09:02→21:28)
[2016-12-28] MEDS: CHLORHEXIDINE GLUCONATE 15 ML UDL PO SCH ×2 (09:02→21:28)
[2016-12-28] MEDS: AMIODARONE HCL 200 MG TAB TUBE SCH ×2 (09:02→21:03)
[2016-12-28] MEDS: ENOXAPARIN 30 MG/0.3 ML SYR SC SCH (09:02)
[2016-12-28] MEDS: BACITRACIN ZINC 14.2 GM OINTTUBE TP SCH ×2 (09:02→21:27)
[2016-12-28] MEDS: FAMOTIDINE 20 MG TAB TUBE SCH ×2 (09:02→21:03)
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
[2016-12-28] MEDS: PROPRANOLOL HCL 10 MG TAB TUBE SCH ×3 (11:05→21:28)
--- NOTE | 2016-12-28 11:30 | WOCRNPDOC ---
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 Wound was covered with gauze on assessment. Wound bed with 20% slough. Wound RN was able to dislodge the area of adhered slough at 6 oclock mechanically. Trachea visible at base of slough. Most of wound is healing well. Cleaned wound and edenilson wound with gauze. Skin prep applied on skin and then folded 4x4 gauze placed over trach site and secured with medipore tape. Bola OSEGUERA stabilized head during proceedure and OT and PT were in room and assissted with patient as well. Wound care will round again Sunday or Monday 01/01 or 01/02.
[2016-12-28] MEDS: SCOPOLAMINE HYDROBROMIDE 1.5 MG PATCH TD SCH (15:38)
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
[2016-12-29 04:43] LABS: ANION GAP 10 mEq/L (8-16); CALCIUM 8.8 mg/dL (8.5-10.4); CARBON DIOXIDE 23 mEq/l (22-31); CHLORIDE 107 mEq/L (97-110); CREATININE 0.9 mg/dL (0.7-1.3); GLOMERULAR FILTRATION RATE > 60; GLUCOSE 101 mg/dL (70-100); POTASSIUM 4.3 mEq/L (3.5-5.2); SODIUM 140 mEq/L (134-144)
[2016-12-29] MEDS: IPRATROPIUM/ALBUTEROL 4GM MDI IH SCH (05:36)
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
[2016-12-29] MEDS: levETIRAcetam 500 MG/5 ML UDCUP TUBE SCH (08:56)
[2016-12-29] MEDS: ENOXAPARIN 40 MG/0.4 ML SYR SC SCH (08:57)
[2016-12-29] MEDS: SENNOSIDES 17.6 MG/10 ML UDL - IF LIQUID ORDERED TUBE SCH ×2 (08:57→21:13)
[2016-12-29] MEDS: AMIODARONE HCL 200 MG TAB TUBE SCH (08:58)
[2016-12-29] MEDS: CHLORHEXIDINE GLUCONATE 15 ML UDL PO SCH (08:58)
[2016-12-29] MEDS: FAMOTIDINE 20 MG TAB TUBE SCH (08:58)
[2016-12-29] MEDS: OLANZapine DISINTEGR 5 MG TAB TUBE SCH ×2 (08:58→21:13)
[2016-12-29] MEDS: PROPRANOLOL HCL 10 MG TAB TUBE SCH (09:00)
[2016-12-29] MEDS: BACITRACIN ZINC 14.2 GM OINTTUBE TP SCH (09:01)
--- NOTE | 2016-12-29 11:04 | TRAUMAPN ---
Assessment/Plan: PAD#17 POD#17 Assessment: Limited resuscitation parameters - shock to cardiovert, no compressions. 1) DVT prophylaxis - Can not use chemical prophylaxis, Compliance with SCDs marginal, Will get FU CT today 2) Neurologic - much more active today occasionally responding to his name by looking in the direction of phonation. Has walked down leonard with assistance!! Seems more interactive. 3) Tube feeds at goal 4) diarrhea resolving somewhat 5) suture lines intact. Facial sutures removed 6) trach capping tolerated. He intermittently decannulates himself and seems to tolerate it. 7) pressure wounds from trach. no yet seen today. 8) awaiting LTAC availability - possible inpatient rehab 9) etiology of leucocytosis unclear - antibiotics stopped. 10) Afib rate controlled with amio po (NSR) 11) Secretions still an issue but less with transcope patch 12) C-spine still not cleared Plan: CT head today will try to change tube feeds to bolus feeds use sitter continually continue SCDs keep gayle in for several more days maintain c-collar will leave trach out when he decannulates himself again PAD#19 POD#19 Assessment: Clarification:Neurosurgery does wish to continue TXA and stop Keppra Limited resuscitation parameters - shock to cardiovert, no compressions. 1) DVT prophylaxis - On lovenox ( okay with neurosurgery) 2) Neurologic - much more active, very busy with activity vest. In [place] bed. Cannot keep C-Collar on. Not tender to exam - Consider cleared 3) Tube feeds at goal - PEG pulled out last night - replaced 4) diarrhea resolving 5) suture lines intact. 6) trach out - tolerating well 7) pressure wounds from trach stable 8) Disposition awaiting Medicaid application 9) Leucotytosis resolving 10) Amiodarone stopped today 11) Secretions diminished - transcope patch stopped 12) CXR pending Plan: continue [place] bed keep gayle in for several more days awaiting Medicaid/transfer Subjective: Will look (transiently) if he is addressed by name Objective: Vital Signs Temp Pulse Resp BP Pulse Ox 36.4 C 92 20 100/60 94 12/29/16 08:00 12/29/16 08:00 12/29/16 08:00 12/29/16 08:00 12/29/16 08:00 Microbiology 12/22/16 14:05 Blood Culture - Final Blood 12/22/16 14:10 Blood Culture - Final Blood Laboratory Results 12/28/16 04:40 12/29/16 04:20 12/28/16 12/29/16 12/30/16 05:59 05:59 05:59 Intake Total 1540 2009 Balance 1540 2009 PT 15.0 SEC (12.0-15.0) 12/26/16 04:35 INR 1.18 (0.83-1.16) H 12/26/16 04:35 - C-Spine Clearance Cervical Spine Cleared: Yes Provider who Cleared Cervical Spine: Patient/Lewis Physical Exam - Physical Exam General Appearance: WD/WN EENT: other (Sutures show good skin approximation. Will await Neurosurgery decision to remove) Neck: other (Moving neck, does not indicate pain when neck palpated. Trach site dressed) Respiratory: chest non-tender, lungs clear, normal breath sounds Cardiac/Chest: regular rate, rhythm Abdomen: other (Binder in place to prevent patient from removing PEG again) Male Genitalia: deferred Rectal: deferred Back: Normal inspection Skin: normal color, warm/dry Extremities: normal range of motion, non-tender Neuro/Psych: other (Not yet interacting with others but very busy with activity vest) Time Spent w/Patient (minutes): 35
[2016-12-29] MEDS: TRANEXAMIC ACID 650 MG TAB PO SCH (21:13)
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
--- NOTE | 2016-12-30 09:00 | TRAUMAPN ---
Assessment/Plan: PAD#20 POD#20 Assessment: Limited resuscitation parameters - shock to cardiovert, no compressions. 1) DVT prophylaxis - On lovenox ( okay with neurosurgery) 2) Neurologic - much more active, very busy with activity vest. In [place] bed. 3) Tube feeds at goal 4) diarrhea resolved as of today 5) suture lines intact. 6) pressure wounds from trach improving and katarzyna 7) Disposition awaiting Medicaid application 8) CXR - right upper lobe consolidation can not R/o pneumonia Plan: continue [place] bed keep gayle in for several more days awaiting Medicaid/transfer CBC and F/u CXR in AM Objective: Vital Signs Temp Pulse Resp BP Pulse Ox 36.5 C 83 17 125/103 H 89 L 12/30/16 04:00 12/30/16 07:59 12/30/16 04:00 12/30/16 07:59 12/30/16 07:59 Laboratory Results 12/28/16 04:40 12/29/16 04:20 12/29/16 12/30/16 12/31/16 05:59 05:59 05:59 Intake Total 2009 1949 Balance 2009 1949 PT 15.0 SEC (12.0-15.0) 12/26/16 04:35 INR 1.18 (0.83-1.16) H 12/26/16 04:35 - C-Spine Clearance Cervical Spine Cleared: Yes Provider who Cleared Cervical Spine: Patient/Tony Physical Exam - Physical Exam General Appearance: WD/WN, other (interactions continue to slowly improve) Neck: other (trach still open but closing. trach wound closing slowly) Respiratory: lungs clear (but cooperation with requested inspirations is poor) Cardiac/Chest: regular rate, rhythm Abdomen: soft (PEG in place) Male Genitalia: deferred Rectal: deferred Back: Normal inspection Skin: normal color, warm/dry Extremities: normal range of motion Neuro/Psych: other (He is busy with activity vest, constantly moving all extremities) Time Spent w/Patient (minutes): 15
[2016-12-30] MEDS: ENOXAPARIN 40 MG/0.4 ML SYR SC SCH (09:10)
[2016-12-30] MEDS: TRANEXAMIC ACID 650 MG TAB PO SCH ×2 (09:10→21:14)
[2016-12-30] MEDS: OLANZapine DISINTEGR 5 MG TAB TUBE SCH ×2 (09:10→21:14)
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
[2016-12-30] MEDS: SENNOSIDES 17.6 MG/10 ML UDL - IF LIQUID ORDERED TUBE SCH ×2 (10:12→21:14)
[2016-12-31 05:54] LABS: % IMMATURE GRANULYOCYTES 1.1 % (0.0-1.1); ABSOLUTE IMMATURE GRANULOCYTES 0.21 10^3/uL (0.00-0.10); ABSOLUTE NRBC COUNT 0.02 10^3/uL (0-0.01); ADD DIFF? NO; ADD MORPH? NO; ADD SCAN? NO; ATYPICAL LYMPHOCYTE FLAG 10 (0-99); FRAGMENT RBC FLAG 0 (0-99); HEMATOCRIT 30.9 % (40.0-51.0); HEMOGLOBIN 10.2 g/dL (13.7-17.5); LEFT SHIFT FLG 10 (0-99); LIPEMIA HEMOLYSIS FLAG 80 (0-99); MEAN CELL HEMOGLOBIN 30.4 pg (27.9-34.1); MEAN PLATELET VOLUME 9.2 fL (8.7-11.7); NRBC-AUTO% 0.1 % (0.0-0.2); PLATELET CLUMPS FLAG 0 (0-99); RED BLOOD CELL COUNT 3.36 10^6/uL (4.40-6.38); RED CELL DISTRIBUTION WIDTH 14.8 % (11.5-15.2)
[2016-12-31 05:55] LABS: PLATELET COUNT 937 10^3/uL (150-400)
[2016-12-31 06:19] LABS: PLATELET ESTIMATE INCREASED (ADEQ)
--- NOTE | 2016-12-31 07:11 | TRAUMAPN ---
Assessment/Plan: PAD#21 POD#21 Assessment: Limited resuscitation parameters - shock to cardiovert, no compressions. 1) DVT prophylaxis - On lovenox ( okay with neurosurgery) 2) Neurologic - answering question - appropriately to a limited extent 3) Tube feeds at goal 4) diarrhea reoccurred 5) suture lines intact. 6) pressure wounds from trach improving and katarzyna 7) Disposition awaiting Medicaid application 8) CXR - right upper lobe consolidation can not R/o pneumonia 9) Infection - WBC and platelets up, CXR report pending but does not look significantly worse incisions are clean and without signs of infection, lungs clear, abdomen soft sputum and blood cultures pending, Stool for C. diff and UA sent. Plan: Levoquin started pending results continue [place] bed keep gayle in for several more days awaiting Medicaid/transfer CBC and F/u CXR in AM Subjective: no complaints verbalized Objective: Vital Signs Temp Pulse Resp BP Pulse Ox 37.2 C 65 16 104/55 L 95 12/31/16 07:01 12/31/16 04:00 12/31/16 04:00 12/31/16 04:00 12/31/16 04:00 Laboratory Results 12/31/16 05:40 12/29/16 04:20 12/30/16 12/31/16 01/01/17 05:59 05:59 05:59 Intake Total 1950 720 Balance 1950 720 PT 15.0 SEC (12.0-15.0) 12/26/16 04:35 INR 1.18 (0.83-1.16) H 12/26/16 04:35 - C-Spine Clearance Cervical Spine Cleared: Yes Provider who Cleared Cervical Spine: Patient/[place] Physical Exam - Physical Exam General Appearance: no apparent distress, other (much more responsive today) EENT: normal ENT inspection Neck: non-tender, full range of motion, supple, normal inspection Respiratory: chest non-tender, lungs clear, normal breath sounds, other (some sputum at trach site) Cardiac/Chest: regular rate, rhythm Abdomen: normal bowel sounds, non-tender (PEG tube in place), soft Male Genitalia: deferred Rectal: deferred Skin: normal color, warm/dry Time Spent w/Patient (minutes): 25
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
[2016-12-31] MEDS ORDERED: ERTAPENEM 1 GM in NS 100 ML IV SCH (09:00)
[2016-12-31 09:02] LABS: ALANINE AMINOTRANSFERASE 49 IU/L (21-72); ALBUMIN 3.4 g/dL (3.5-5.0); ALKALINE PHOSPHATASE 108 IU/L (38-126); ANION GAP 11 mEq/L (8-16); ASPARTATE AMINOTRANSFERASE 25 IU/L (17-59); BILIRUBIN,TOTAL 0.6 mg/dL (0.1-1.4); CARBON DIOXIDE 23 mEq/l (22-31); CHLORIDE 106 mEq/L (97-110); GLOMERULAR FILTRATION RATE > 60; GLUCOSE 123 mg/dL (70-100); MAGNESIUM 2.8 mg/dL (1.6-2.3); SODIUM 140 mEq/L (134-144); TOTAL PROTEIN 6.8 g/dL (6.3-8.2)
[2016-12-31] MEDS ORDERED: levOFLOXACIN 500 MG/DEXTROSE 100 ML IV SCH (09:15)
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
[2016-12-31] MEDS ORDERED: PIPERACILLIN/TAZO 4.5 GM/DEX 100 ML IV SCH (12:00)
[2016-12-31] MEDS: AMOXICILLIN/CLAVULANATE POT 875/125 MG TAB PO SCH ×2 (12:36→21:36)
[2016-12-31] MEDS: ENOXAPARIN 40 MG/0.4 ML SYR SC SCH (12:36)
[2016-12-31] MEDS: TRANEXAMIC ACID 650 MG TAB PO SCH ×2 (12:36→21:37)
[2016-12-31] MEDS: OLANZapine DISINTEGR 5 MG TAB TUBE SCH ×2 (12:36→21:37)
[2016-12-31] MEDS: SENNOSIDES 17.6 MG/10 ML UDL - IF LIQUID ORDERED TUBE SCH ×2 (12:37→21:37)
[2017-01-01 05:17] LABS: % IMMATURE GRANULYOCYTES 1.4 % (0.0-1.1); ADD DIFF? NO; ADD MORPH? NO; ADD SCAN? NO; ATYPICAL LYMPHOCYTE FLAG 30 (0-99); FRAGMENT RBC FLAG 0 (0-99); HEMATOCRIT 30.5 % (40.0-51.0); LEFT SHIFT FLG 10 (0-99); LIPEMIA HEMOLYSIS FLAG 80 (0-99); MEAN CELL HEMOGLOBIN 30.4 pg (27.9-34.1); MEAN CELL HEMOGLOBIN CONCENTR. 32.8 g/dL (32.4-36.7); MEAN CELL VOLUME 92.7 fL (81.5-99.8); MEAN PLATELET VOLUME 9.2 fL (8.7-11.7); PLATELET CLUMPS FLAG 0 (0-99); RED BLOOD CELL COUNT 3.29 10^6/uL (4.40-6.38); RED CELL DISTRIBUTION WIDTH 14.9 % (11.5-15.2)
[2017-01-01 05:19] LABS: PLATELET COUNT 926 10^3/uL (150-400)
[2017-01-01 05:38] LABS: PLATELET ESTIMATE INCREASED (ADEQ)
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
[2017-01-01] MEDS: SENNOSIDES 17.6 MG/10 ML UDL - IF LIQUID ORDERED TUBE SCH ×2 (08:58→21:29)
[2017-01-01] MEDS: TRANEXAMIC ACID 650 MG TAB PO SCH ×2 (08:58→21:29)
[2017-01-01] MEDS: ENOXAPARIN 40 MG/0.4 ML SYR SC SCH (08:59)
[2017-01-01] MEDS: OLANZapine DISINTEGR 5 MG TAB TUBE SCH ×2 (08:59→21:29)
[2017-01-01] MEDS: AMOXICILLIN/CLAVULANATE POT 875/125 MG TAB PO SCH ×2 (08:59→21:29)
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
[2017-01-02 05:38] LABS: % IMMATURE GRANULYOCYTES 1.7 % (0.0-1.1); ABSOLUTE IMMATURE GRANULOCYTES 0.19 10^3/uL (0.00-0.10); ADD DIFF? NO; ADD MORPH? NO; ADD SCAN? NO; ATYPICAL LYMPHOCYTE FLAG 30 (0-99); FRAGMENT RBC FLAG 0 (0-99); HEMATOCRIT 30.8 % (40.0-51.0); HEMOGLOBIN 10.2 g/dL (13.7-17.5); LEFT SHIFT FLG 10 (0-99); LIPEMIA HEMOLYSIS FLAG 80 (0-99); MEAN CELL HEMOGLOBIN 30.5 pg (27.9-34.1); MEAN CELL HEMOGLOBIN CONCENTR. 33.1 g/dL (32.4-36.7); MEAN CELL VOLUME 92.2 fL (81.5-99.8); MEAN PLATELET VOLUME 9.1 fL (8.7-11.7); PLATELET CLUMPS FLAG 0 (0-99); RED BLOOD CELL COUNT 3.34 10^6/uL (4.40-6.38); RED CELL DISTRIBUTION WIDTH 14.6 % (11.5-15.2)
[2017-01-02 05:46] LABS: PLATELET COUNT 936 10^3/uL (150-400)
[2017-01-02 07:04] LABS: PLATELET ESTIMATE INCREASED (ADEQ)
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
[2017-01-02] MEDS: SENNOSIDES 17.6 MG/10 ML UDL - IF LIQUID ORDERED TUBE SCH (09:09)
[2017-01-02] MEDS: TRANEXAMIC ACID 650 MG TAB PO SCH ×2 (09:09→20:31)
[2017-01-02] MEDS: AMOXICILLIN/CLAVULANATE POT 875/125 MG TAB PO SCH ×2 (09:09→20:31)
[2017-01-02] MEDS: OLANZapine DISINTEGR 5 MG TAB TUBE SCH (09:10)
--- NOTE | 2017-01-02 09:34 | WOCRNPDOC ---
WOCRN Advanced Assessment Note - Skin Integrity Problem, Advanced Assess Coccyx Dressing Type: Open to Air Exudate Amount: None Exudate Characteristic(s): None Integumentary Issue Intervention: Lotion/Cream Applied (dimethicone, by nursing) Jaqui Wound Tissue: Blanching, Intact Jaqui Wound Swelling: None Pressure Injury Stage: Stage 2 (now healed) Skin Integrity Problem Comment: Previous stage 2 over coccyx remains healed, w/ blanching tissue noted throughout. DC'd order for protective dressing, and initiated order for application of dimethicone skin protectant BID. Report given to grainer machineOUMAR Foreman. 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 Wound bed is 95% granulation tissue and 5% adhered slough streaked throughout. Jaqui-wound skin is intact, w/ no erythema or swelling. Because the wound continues to exude mucous, will continue w/ absorbant outer dressing and re-evaluate next on 01/09. Report givent to grainer machineOUMAR Foreman.
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
[2017-01-02] MEDS ORDERED: LACTULOSE 20 GM/30 ML UDCUP PO PRN (11:28)
[2017-01-02] MEDS ORDERED: ACETAMINOPHEN 325 MG TAB PO PRN (11:28)
[2017-01-02] MEDS ORDERED: LOPERAMIDE HCL 2 MG CAP PO PRN (11:29)
[2017-01-02] MEDS ORDERED: MAGNESIUM HYDROXIDE 30 ML UDCUP PO PRN (11:29)
[2017-01-02] MEDS: SENNOSIDES/DOCUSATE SODIUM TAB PO SCH (19:21)
[2017-01-02] MEDS: OLANZapine DISINTEGR 5 MG TAB PO SCH (20:31)
[2017-01-03 05:23] LABS: % IMMATURE GRANULYOCYTES 0.7 % (0.0-1.1); ADD DIFF? NO; ADD MORPH? NO; ADD SCAN? NO; ATYPICAL LYMPHOCYTE FLAG 50 (0-99); FRAGMENT RBC FLAG 0 (0-99); HEMATOCRIT 32.5 % (40.0-51.0); HEMOGLOBIN 10.7 g/dL (13.7-17.5); LEFT SHIFT FLG 0 (0-99); LIPEMIA HEMOLYSIS FLAG 80 (0-99); MEAN CELL HEMOGLOBIN 30.7 pg (27.9-34.1); MEAN CELL HEMOGLOBIN CONCENTR. 32.9 g/dL (32.4-36.7); MEAN CELL VOLUME 93.1 fL (81.5-99.8); MEAN PLATELET VOLUME 8.9 fL (8.7-11.7); PLATELET CLUMPS FLAG 0 (0-99); RED BLOOD CELL COUNT 3.49 10^6/uL (4.40-6.38); RED CELL DISTRIBUTION WIDTH 14.6 % (11.5-15.2)
[2017-01-03 05:24] LABS: PLATELET COUNT 974 10^3/uL (150-400)
[2017-01-03 05:48] LABS: PLATELET ESTIMATE INCREASED (ADEQ)
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
[2017-01-03] MEDS: SENNOSIDES/DOCUSATE SODIUM TAB PO SCH ×2 (09:29→19:40)
[2017-01-03] MEDS: TRANEXAMIC ACID 650 MG TAB PO SCH ×2 (09:30→19:40)
[2017-01-03] MEDS: OLANZapine DISINTEGR 5 MG TAB PO SCH ×2 (09:30→19:39)
[2017-01-03] MEDS: AMOXICILLIN/CLAVULANATE POT 875/125 MG TAB PO SCH ×2 (09:30→19:40)
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
[2017-01-04] MEDS: AMOXICILLIN/CLAVULANATE POT 875/125 MG TAB PO SCH (08:28)
[2017-01-04] MEDS: OLANZapine DISINTEGR 5 MG TAB PO SCH ×2 (08:29→20:29)
[2017-01-04] MEDS: TRANEXAMIC ACID 650 MG TAB PO SCH ×2 (08:29→20:29)
[2017-01-04] MEDS: SENNOSIDES/DOCUSATE SODIUM TAB PO SCH ×2 (08:30→18:36)
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
--- NOTE | 2017-01-04 12:18 | WOCRNPDOC ---
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 Healing well, air exchange still audible from trach site. No concerns. Wound care will round again on 01/11.
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
[2017-01-05 08:14] VITALS: BP 94/74; PULSE 104; RESP 16; TEMP 97.7; O2SAT 96
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
[2017-01-05] MEDS: SENNOSIDES/DOCUSATE SODIUM TAB PO SCH (08:56)
[2017-01-05] MEDS: TRANEXAMIC ACID 650 MG TAB PO SCH (08:56)
[2017-01-05] MEDS: OLANZapine DISINTEGR 5 MG TAB PO SCH (08:57)
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
--- NOTE | 2017-01-05 13:12 | PDIAF ---
- Diagnosis Code Status: Limited Resuscitation - Medication Management Discharge Medications: Medications to Continue on Transfer Herbals/Supplements -Info Only 1 ea PO DAILY 12/12/16 [Last Taken Unknown] Multivitamins [Multivitamin (*)] 1 each PO DAILY 12/12/16 [Last Taken Unknown] Acetaminophen [Tylenol 325mg (*)] 325 - 650 mg PO Q4HRS PRN #0 tab 01/05/17 [ Last Taken Unknown] Loperamide HCl [Imodium 2 mg (*)] 2 mg PO QID PRN #0 cap 01/05/17 [Last Taken Unknown] OLANZapine DISINTEGR [ZyPREXA ZYDIS (*)] 5 mg PO BID #0 tab 01/05/17 [Last Taken Unknown] Tranexamic Acid 650 mg PO BID #0 tab 01/05/17 [Last Taken Unknown] levOFLOXACIN [levAQUIN (*)] 750 mg PO DAILY AT 10AM #0 tab 01/05/17 [Last Taken Unknown] Discharge Medications: Refer to the Discharge Home Medication list for PRN reason. - Orders Services needed: Speech Language Pathologist Diet Recommendation: no restrictions on diet Diet Texture: Dysphagia 2 - Mechanically Altered - Chopped, Ground, Thin Liquids , Meds Whole in Puree Wound Care Instructions: d/c sutures 01/10 Activity/Weight Bearing Restrictions: no restrictions Additional: D/c levaquin 01/16 - Labs/Radiology Imaging Orders: CT scan head with neurosurgery 01/10 Call or Fax Lab and Imaging Results to: Dr Rowley - Follow Up Care Current Providers and Referrals: Alka Mcgrath MD [Medical Doctor] - (CALL FOR OFFICE EVAL ONCE DISCHARGED.) Patient,NotPresent [Primary Care Provider] - As per Instructions Beulah Rowley DO [Doctor of Osteopathy] - follow up in 1 week
== END 2017-01-05 15:07 | DRG 3 ==
LOC: EDUNIT# → EDBD → EEVIPCON 16:49 → F2N 18:00 → F3N 01-03 05:04
PROVIDERS: ADMIT Surgery; ATTEND Surgery
PROC: 0HQ0XZZ Repair Scalp Skin, External Approach (ICD-10-PCS; 2016-12-11)
PROC: 0HQ1XZZ Repair Face Skin, External Approach (ICD-10-PCS; 2016-12-11)
PROC: 0HQ2XZZ Repair Right Ear Skin, External Approach (ICD-10-PCS; 2016-12-11)
PROC: 5A1945Z Respiratory Ventilation, 24-96 Consecutive Hours (ICD-10-PCS; 2016-12-11)
PROC: 0BH17EZ Insertion of Endotracheal Airway into Trachea, Via Natural or Artificial Opening (ICD-10-PCS; 2016-12-11)
PROC: 0D9670Z Drainage of Stomach with Drainage Device, Via Natural or Artificial Opening (ICD-10-PCS; 2016-12-11)
PROC: 0NS504Z Reposition Right Temporal Bone with Internal Fixation Device, Open Approach (ICD-10-PCS; principal; 2016-12-11 21:07)
PROC: 00C00ZZ Extirpation of Matter from Brain, Open Approach (ICD-10-PCS; principal; 2016-12-11 21:07)
PROC: 00C30ZZ Extirpation of Matter from Intracranial Epidural Space, Open Approach (ICD-10-PCS; principal; 2016-12-11 21:07)
PROC: 0BH18EZ Insertion of Endotracheal Airway into Trachea, Via Natural or Artificial Opening Endoscopic (ICD-10-PCS; 2016-12-16)
PROC: 5A1955Z Respiratory Ventilation, Greater than 96 Consecutive Hours (ICD-10-PCS; 2016-12-16)
PROC: 0DH67UZ Insertion of Feeding Device into Stomach, Via Natural or Artificial Opening (ICD-10-PCS; 2016-12-16)
PROC: 02HV33Z Insertion of Infusion Device into Superior Vena Cava, Percutaneous Approach (ICD-10-PCS; 2016-12-16)
PROC: 0B110F4 Bypass Trachea to Cutaneous with Tracheostomy Device, Open Approach (ICD-10-PCS; 2016-12-17)
PROC: 0B9M8ZZ Drainage of Bilateral Lungs, Via Natural or Artificial Opening Endoscopic (ICD-10-PCS; 2016-12-17)
PROC: 3E0G76Z Introduction of Nutritional Substance into Upper GI, Via Natural or Artificial Opening (ICD-10-PCS; 2016-12-17)
PROC: 0B9B8ZX Drainage of Left Lower Lobe Bronchus, Via Natural or Artificial Opening Endoscopic, Diagnostic (ICD-10-PCS; 2016-12-19)
PROC: 0B968ZX Drainage of Right Lower Lobe Bronchus, Via Natural or Artificial Opening Endoscopic, Diagnostic (ICD-10-PCS; 2016-12-19)
PROC: 0D164J4 Bypass Stomach to Cutaneous with Synthetic Substitute, Percutaneous Endoscopic Approach (ICD-10-PCS; 2016-12-19)
PROC: 0DH63UZ Insertion of Feeding Device into Stomach, Percutaneous Approach (ICD-10-PCS; 2016-12-29)
DX: S02.19XA Other fracture of base of skull, initial encounter for closed fracture (principal); S02.82XA Fracture of other specified skull and facial bones, left side, initial encounter for closed fracture; S02.40EA Zygomatic fracture, right side, initial encounter for closed fracture; S06.4X0A Epidural hemorrhage without loss of consciousness, initial encounter; J96.01 Acute respiratory failure with hypoxia; J96.02 Acute respiratory failure with hypercapnia; J69.0 Pneumonitis due to inhalation of food and vomit; J18.9 Pneumonia, unspecified organism; D62 Acute posthemorrhagic anemia; J95.09 Other tracheostomy complication; L89.894 Pressure ulcer of other site, stage 4; S01.112A Laceration without foreign body of left eyelid and periocular area, initial encounter; S01.312A Laceration without foreign body of left ear, initial encounter; S01.81XA Laceration without foreign body of other part of head, initial encounter; S01.01XA Laceration without foreign body of scalp, initial encounter; R40.2412 Glasgow coma scale score 13-15, at arrival to emergency department; Y00.XXXA Assault by blunt object, initial encounter; Y92.019 Unspecified place in single-family (private) house as the place of occurrence of the external cause; I48.0 Paroxysmal atrial fibrillation; F17.210 Nicotine dependence, cigarettes, uncomplicated; I83.92 Asymptomatic varicose veins of left lower extremity; I95.9 Hypotension, unspecified; R19.7 Diarrhea, unspecified
CPT/HCPCS: 92507-GN; 92523-GN; 92526-GN; 92610-GN; 96374; 97110-GO; 97112-GO; 97112-GP; 97116-GP; 97162-GP; 97164-GP; 97167-GO; 97168-GO; 97530-GO; 97530-GP; 97535-GO; C1713; C1751; G0480; J0282; J0330; J0360; J0461; J0610; J0690; J1170; J1265; J1335; J1650; J1940; J1953; J1956; J2060; J2250; J2543; J2704; J2765; J2997; J3010; J3370; L0174; P9041

== ENCOUNTER 2017-01-05 13:40 | Inpatient (IN) | payer MEDICAID ==
[2017-01-05] MEDS ORDERED: LOPERAMIDE HCL 2 MG CAP PO PRN (16:40)
[2017-01-05] MEDS ORDERED: SENNOSIDES 1 TAB PO PRN (16:42)
--- NOTE | 2017-01-05 16:53 | PDOREHIP ---
Admission [facility] - Admission - 3 Day Assessment Period Admission Date/Day 1: 01/05/17 Day 2: 01/06/17 Day 3: 01/07/17 - Active Diagnoses Comorbidities and Co-existing Conditions at Admission: 25622. None of the Above - Skin Conditions Unhealed Pressure Ulcer (1 or more/Stage 1 or >)-Admission: 1. Yes # Stage 2 Pressure Ulcers-Admission: 1 (2 - 3 mm healing over R coccyx)
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
[2017-01-05] MEDS: OLANZapine DISINTEGR 5 MG TAB PO SCH (19:57)
[2017-01-05] MEDS: TRANEXAMIC ACID 650 MG TAB PO SCH (19:58)
[2017-01-06 06:21] LABS: % IMMATURE GRANULYOCYTES 0.7 % (0.0-1.1); ABSOLUTE IMMATURE GRANULOCYTES 0.11 10^3/uL (0.00-0.10); ADD DIFF? NO; ADD MORPH? NO; ADD SCAN? NO; ATYPICAL LYMPHOCYTE FLAG 20 (0-99); FRAGMENT RBC FLAG 0 (0-99); HEMATOCRIT 35.4 % (40.0-51.0); HEMOGLOBIN 11.5 g/dL (13.7-17.5); LEFT SHIFT FLG 0 (0-99); LIPEMIA HEMOLYSIS FLAG 80 (0-99); MEAN CELL HEMOGLOBIN 30.4 pg (27.9-34.1); MEAN CELL HEMOGLOBIN CONCENTR. 32.5 g/dL (32.4-36.7); MEAN CELL VOLUME 93.7 fL (81.5-99.8); MEAN PLATELET VOLUME 9.4 fL (8.7-11.7); PLATELET CLUMPS FLAG 0 (0-99); RED BLOOD CELL COUNT 3.78 10^6/uL (4.40-6.38); RED CELL DISTRIBUTION WIDTH 14.6 % (11.5-15.2)
[2017-01-06 06:25] LABS: PLATELET COUNT 859 10^3/uL (150-400)
[2017-01-06 06:42] LABS: PLATELET ESTIMATE INCREASED (ADEQ)
[2017-01-06] MEDS: MULTIVITAMINS 1 EACH TAB PO SCH (08:31)
[2017-01-06] MEDS: TRANEXAMIC ACID 650 MG TAB PO SCH ×2 (08:31→21:49)
[2017-01-06] MEDS: OLANZapine DISINTEGR 5 MG TAB PO SCH ×2 (08:31→21:49)
[2017-01-06] MEDS ORDERED: Herbals/Supplements -Info Only PO SCH (09:00)
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
[2017-01-07] MEDS: MULTIVITAMINS 1 EACH TAB PO SCH (09:58)
[2017-01-07] MEDS: TRANEXAMIC ACID 650 MG TAB PO SCH ×2 (09:58→21:54)
[2017-01-07] MEDS: OLANZapine DISINTEGR 5 MG TAB PO SCH ×2 (09:58→21:54)
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
[2017-01-08 07:35] LABS: % IMMATURE GRANULYOCYTES 0.7 % (0.0-1.1); ABSOLUTE IMMATURE GRANULOCYTES 0.06 10^3/uL (0.00-0.10); ADD DIFF? NO; ADD MORPH? NO; ADD SCAN? NO; ATYPICAL LYMPHOCYTE FLAG 30 (0-99); FRAGMENT RBC FLAG 0 (0-99); HEMATOCRIT 34.4 % (40.0-51.0); HEMOGLOBIN 11.2 g/dL (13.7-17.5); LEFT SHIFT FLG 0 (0-99); LIPEMIA HEMOLYSIS FLAG 80 (0-99); MEAN CELL HEMOGLOBIN CONCENTR. 32.6 g/dL (32.4-36.7); MEAN CELL VOLUME 92.2 fL (81.5-99.8); MEAN PLATELET VOLUME 9.1 fL (8.7-11.7); PLATELET CLUMPS FLAG 0 (0-99); PLATELET COUNT 630 10^3/uL (150-400); RED BLOOD CELL COUNT 3.73 10^6/uL (4.40-6.38); RED CELL DISTRIBUTION WIDTH 14.6 % (11.5-15.2)
[2017-01-08] MEDS: TRANEXAMIC ACID 650 MG TAB PO SCH ×2 (08:34→20:41)
[2017-01-08] MEDS: MULTIVITAMINS 1 EACH TAB PO SCH (08:35)
[2017-01-08] MEDS: OLANZapine DISINTEGR 5 MG TAB PO SCH ×2 (08:35→20:41)
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
[2017-01-09] MEDS: MULTIVITAMINS 1 EACH TAB PO SCH (07:51)
[2017-01-09] MEDS: TRANEXAMIC ACID 650 MG TAB PO SCH ×2 (07:51→20:15)
[2017-01-09] MEDS ORDERED: NYSTATIN POWDER 15 GM BTL TP ONE (12:42)
[2017-01-09] MEDS: NYSTATIN POWDER 15 GM BTL TP SCH ×2 (14:01→20:15)
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
[2017-01-09] MEDS: OLANZapine DISINTEGR 5 MG TAB PO SCH (20:15)
[2017-01-10] MEDS: MULTIVITAMINS 1 EACH TAB PO SCH (08:09)
[2017-01-10] MEDS: TRANEXAMIC ACID 650 MG TAB PO SCH ×2 (08:09→20:04)
[2017-01-10] MEDS: NYSTATIN POWDER 15 GM BTL TP SCH ×3 (08:11→20:04)
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
[2017-01-10] MEDS: SERTRALINE HCL 25 MG TAB PO SCH (11:58)
[2017-01-10] MEDS: OLANZapine DISINTEGR 5 MG TAB PO SCH (20:04)
[2017-01-11] MEDS: NYSTATIN POWDER 15 GM BTL TP SCH ×3 (06:00→15:42)
[2017-01-11] MEDS: MULTIVITAMINS 1 EACH TAB PO SCH (08:31)
[2017-01-11] MEDS: TRANEXAMIC ACID 650 MG TAB PO SCH ×2 (08:31→20:02)
[2017-01-11] MEDS: SERTRALINE HCL 25 MG TAB PO SCH (08:31)
[2017-01-11] MEDS: ACETAMINOPHEN 325 MG TAB PO PRN ×2 (08:32→19:56)
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
[2017-01-11] MEDS: NICOTINE 14 MG/24 HR PATCH TD SCH (10:24)
[2017-01-11] MEDS: OLANZapine DISINTEGR 5 MG TAB PO SCH (20:02)
[2017-01-12] MEDS: TRANEXAMIC ACID 650 MG TAB PO SCH ×2 (08:00→20:41)
[2017-01-12] MEDS: NICOTINE 14 MG/24 HR PATCH TD SCH (08:00)
[2017-01-12] MEDS: MULTIVITAMINS 1 EACH TAB PO SCH (08:00)
[2017-01-12] MEDS: SERTRALINE HCL 25 MG TAB PO SCH (08:00)
[2017-01-12] MEDS: NYSTATIN POWDER 15 GM BTL TP SCH ×2 (08:01→15:28)
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
[2017-01-13] MEDS: NYSTATIN POWDER 15 GM BTL TP SCH ×4 (06:07→21:20)
[2017-01-13] MEDS: NICOTINE 14 MG/24 HR PATCH TD SCH (08:30)
[2017-01-13] MEDS: SERTRALINE HCL 25 MG TAB PO SCH (08:31)
[2017-01-13] MEDS: TRANEXAMIC ACID 650 MG TAB PO SCH ×2 (08:31→20:08)
[2017-01-13] MEDS: MULTIVITAMINS 1 EACH TAB PO SCH (08:31)
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
[2017-01-14] MEDS: SERTRALINE HCL 25 MG TAB PO SCH (08:52)
[2017-01-14] MEDS: MULTIVITAMINS 1 EACH TAB PO SCH (08:52)
[2017-01-14] MEDS: TRANEXAMIC ACID 650 MG TAB PO SCH ×2 (08:52→20:21)
[2017-01-14] MEDS: NYSTATIN POWDER 15 GM BTL TP SCH ×3 (08:52→20:40)
[2017-01-14] MEDS: NICOTINE 14 MG/24 HR PATCH TD SCH (08:52)
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
[2017-01-15] MEDS: MULTIVITAMINS 1 EACH TAB PO SCH (07:50)
[2017-01-15] MEDS: NICOTINE 14 MG/24 HR PATCH TD SCH (07:50)
[2017-01-15] MEDS: NYSTATIN POWDER 15 GM BTL TP SCH (07:51)
[2017-01-15] MEDS: TRANEXAMIC ACID 650 MG TAB PO SCH ×2 (07:51→20:18)
[2017-01-15] MEDS: SERTRALINE HCL 25 MG TAB PO SCH (07:51)
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
[2017-01-16] MEDS: SERTRALINE HCL 25 MG TAB PO SCH (08:59)
[2017-01-16] MEDS: TRANEXAMIC ACID 650 MG TAB PO SCH ×2 (08:59→20:27)
[2017-01-16] MEDS: NICOTINE 14 MG/24 HR PATCH TD SCH (08:59)
[2017-01-16] MEDS: MULTIVITAMINS 1 EACH TAB PO SCH (09:00)
--- NOTE | 2017-01-16 12:41 | WOCRNPDOC ---
WOCRN Advanced Assessment Note - Skin Integrity Problem, Advanced Assess Anterior Neck Surgical Wound/Incision Dressing Type: Gauze, Other Other Dressing Type: Medipore tape Dressing Description: Clean/Dry, Intact Exudate Amount: None Exudate Characteristic(s): None Integumentary Issue Intervention: Dressing Changed Jaqui Wound Tissue: Intact Jaqui Wound Swelling: None Wound Bed Color: Brown Wound Bed Constitution: Scab Wound Edges: Epithelizing Site Odor: None Site Measurement - Head-to-Toe Length X Width X Depth (cm): 0.5cmx0.7cmx scab Pressure Injury Stage: Stage 4 (previously full-thickness pressure injury; healing.), Manager Organizational Related Pressure Injury Pressure Injury Present on Admit: No Skin Integrity Problem Comment: Former stage 4 pressure injury r/t trach face plate, now healing w/ small intact scab noted. Wound measurements decreased significantly since last assessment. Jaqui-wound skin is intact w/ no swelling or erythema noted. Changed dressing order to wound gel and band-aid. I do not anticipate any impediments to normal wound healing, and patient should heal within a couple of weeks w/ minimal wound care. Report given to insurance verification clerk Jen.
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
[2017-01-17 07:11] VITALS: BP 94/55; PULSE 77; RESP 16; TEMP 98.2; O2SAT 95
[2017-01-17] MEDS: NICOTINE 14 MG/24 HR PATCH TD SCH (08:03)
[2017-01-17] MEDS: SERTRALINE HCL 25 MG TAB PO SCH (08:03)
[2017-01-17] MEDS: MULTIVITAMINS 1 EACH TAB PO SCH (08:03)
[2017-01-17] MEDS: TRANEXAMIC ACID 650 MG TAB PO SCH (08:03)
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
--- NOTE | 2017-01-17 14:35 | PDOREHIP ---
Admission [facility] - Admission - 3 Day Assessment Period Admission Date/Day 1: 01/05/17 Day 2: 01/06/17 Day 3: 01/07/17 Discharge [facility] - Discharge - 3 Day Assessment Period 2 Days Prior to Anticipated Discharge Date: 01/15/17 1 Day Prior to Anticipated Discharge Date: 01/16/17 Anticipated Discharge Date: 01/17/17 - Discharge Skin Conditions Unhealed Pressure Ulcer (1 or more/Stage 1 or >)-Discharge: 0. No
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
== END 2017-01-17 15:47 | disposition home or self-care (01) | DRG 559 ==
LOC: BREH 13:40
PROVIDERS: ADMIT Internal Medicine; ATTEND Internal Medicine
PROC: F08Z7ZZ Vocational Activities and Functional Community or Work Reintegration Skills Treatment (ICD-10-PCS; principal; 2017-01-05)
PROC: F07M3ZZ Motor Function Treatment of Musculoskeletal System - Whole Body (ICD-10-PCS; principal; 2017-01-05)
PROC: F0636ZZ Communicative/Cognitive Integration Skills Treatment of Neurological System - Whole Body (ICD-10-PCS; principal; 2017-01-05)
PROC: F08Z4ZZ Home Management Treatment (ICD-10-PCS; principal; 2017-01-05)
DX: S02.19XD Other fracture of base of skull, subsequent encounter for fracture with routine healing (principal); S02.82XD Fracture of other specified skull and facial bones, left side, subsequent encounter for fracture with routine healing; S02.81XD Fracture of other specified skull and facial bones, right side, subsequent encounter for fracture with routine healing; S02.40ED Zygomatic fracture, right side, subsequent encounter for fracture with routine healing; S06.5X9D Traumatic subdural hemorrhage with loss of consciousness of unspecified duration, subsequent encounter; H05.212 Displacement (lateral) of globe, left eye; J18.9 Pneumonia, unspecified organism; Z87.891 Personal history of nicotine dependence; K59.00 Constipation, unspecified; L89.152 Pressure ulcer of sacral region, stage 2; R41.841 Cognitive communication deficit; R41.840 Attention and concentration deficit; R41.844 Frontal lobe and executive function deficit; R13.10 Dysphagia, unspecified; Z93.1 Gastrostomy status; Y09 Assault by unspecified means; Y92.9 Unspecified place or not applicable
CPT/HCPCS: 92507-GN; 92522-GN; 92610-GN; 97110-GO; 97110-GP; 97112-GP; 97116-GP; 97162-GP; 97166-GO; 97530-GO; 97530-GP; 97532-GO; 97535-GO; 97537-GO; 99366-GO

== ENCOUNTER 2017-10-30 22:16 | Inpatient (IN) | payer MEDICAID ==
--- NOTE | 2017-10-30 22:29 | EDPHY ---
H & P Stated Complaint: LLQ abd pain poss hernia Time Seen by Provider: 10/30/17 22:28 HPI/ROS: HPI CHIEF COMPLAINT: Left lower quadrant abdominal pain, , left scrotal pain. HISTORY OF PRESENT ILLNESS: This patient 56-year-old male, presents emergency room with increasing abdominal pain left lower quadrant, left scrotal. He has a very large hernia. Patient is seen his primary care doctor for this. However has not been evaluated by a surgeon. He states he has had hernia for 3 years. However the last 24 hr the pain has gotten rather more severe. He describes 10/10 pain. Pain is located left lower quadrant left inguinal region , down into left scrotum. Unable to sit. He denies any vomiting. Patient reports he does not take any medications. Past Medical History: Previous head trauma. Past Surgical History: Peg tube, tracheostomy Social History: Smokes tobacco daily. Denies illicit drugs or alcohol. Family History: Noncontributory ROS REVIEW OF SYSTEMS: A comprehensive 10 point review of systems is otherwise negative aside from elements mentioned in the history of present illness. Exam Constitutional for a triage nursing summary reviewed, vital signs reviewed, awake/alert. Eyes normal conjunctivae and sclera, EOMI, PERRLA. HENT normal inspection, atraumatic, moist mucus membranes, no epistaxis, neck supple/ no meningismus, no raccoon eyes. Respiratory clear to auscultation bilaterally, normal breath sounds, no respiratory distress, no wheezing. Cardiovascular rate normal, regular rhythm, no murmur, no edema, distal pulses normal. Gastrointestinal tender palpation left lower quadrant, tender palpation in the left scrotum, tender palpation left inguinal region, described as very large. Exam consistent with a left inguinal hernia. Genitourinary no CVA tenderness. Musculoskeletal no midline vertebral tenderness, full range of motion, no calf swelling, no tenderness of extremities, no meningismus, good pulses, neurovascularly intact. Skin pink, warm, & dry, no rash, skin atraumatic. Neurologic awake, alert and oriented x 3, AAOx3, moves all 4 extremities equally, motor intact, sensory intact, CN II-XII intact, normal cerebellar, normal vision, normal speech. Psychiatric normal mood/affect. Heme/Lymph/Immune no lymphadenopathy. Differential Diagnosis: Includes but is not limited to in a particular order worsening left inguinal hernia, incarcerated hernia, strangulated hernia, and chronic bowel. Bowel obstruction. Medical Decision Making: Plan for this patient IV establishment IV fluid bolus , IV Dilaudid for pain control, IV Zofran for nausea, check basic blood work, including lactic, ultrasound scrotum Re-evaluation: Ultrasound: Scrotum: Shows a large indirect inguinal hernia with bowel in the scrotum. It is displacing the left testes. There is good blood flow to the testes. The patient's exam and ultrasound is concerning for incarcerated strangulated bowel loops. Re-evaluation: 2342: Spoke with Dr. Green, surgery on-call he will come and see and evaluate the patient. 1257: Patient will go to the operating room with Dr. Green. Concern for incarcerated strangulated hernia. Patient updated is okay with this plan. Source: Patient - Personal History Current Tetanus/Diphtheria Vaccine: Yes Current Tetanus Diphtheria and Acellular Pertussis (TDAP): Yes - Medical/Surgical History Hx Asthma: No Hx Chronic Respiratory Disease: No Hx Diabetes: No Hx Cardiac Disease: No Hx Renal Disease: No Hx Cirrhosis: No Hx Alcoholism: No Hx HIV/AIDS: No Hx Splenectomy or Spleen Trauma: No Other PMH: Appendectomy as a child. PNA. 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 - Social History Smoking Status: Current every day smoker Constitutional: Initial Vital Signs Temperature (C) 36.4 C 10/30/17 22:22 Heart Rate 92 10/30/17 22:22 Respiratory Rate 16 10/30/17 22:22 Blood Pressure 126/86 H 10/30/17 22:22 O2 Sat (%) 95 10/30/17 22:22 O2 Delivery Mode Nasal Cannula O2 (L/minute) 2 Allergies/Adverse Reactions: No Known Allergies Allergy (Verified 10/30/17 22:24) Home Medications: Medication Instructions Recorded Multivitamins [Multivitamin (*)] 1 each PO DAILY 12/12/16 Hydrocodone/APAP 5/325 [Lamont 1 tab PO Q4HRS PRN #30 tab 10/31/17 5/325 (*)] Ibuprofen [Motrin (*)] 600 mg PO Q8HRS #30 tab 10/31/17 Medical Decision Making - Data Points Laboratory Results: Laboratory Results 10/30/17 22:35 10/30/17 22:35 Medications Given: Discontinued Medications Hydrocodone Bitart/Acetaminophen (Lamont 5/325) 1 - 2 tab PO Q4HRS PRN PRN Reason: Pain, Moderate Able to Take PO Stop: 11/10/17 00:40 Last Admin: 10/31/17 09:28 Dose: 2 tab Bupivacaine HCl (Sensorcaine 0.5% Vial) Confirm Administered Dose 30 ml .ROUTE .STK-MED ONE Stop: 10/31/17 01:03 Last Admin: 10/31/17 03:03 Dose: 10 ml Fentanyl (Sublimaze) 25 - 100 mcg IVP Q5M PRN PRN Reason: PACU, IMMEDIATE Pain control Stop: 10/31/17 03:13 Last Admin: 10/31/17 03:59 Dose: 25 mcg Hydromorphone HCl (Dilaudid) 1 mg IVP EDNOW ONE Stop: 10/30/17 22:42 Last Admin: 10/30/17 22:47 Dose: 1 mg Hydromorphone HCl (Dilaudid) 1 mg IVP EDNOW ONE Stop: 10/30/17 23:16 Last Admin: 10/30/17 23:17 Dose: 1 mg Hydromorphone HCl (Dilaudid) 1 mg IVP EDNOW ONE Stop: 10/31/17 00:28 Last Admin: 10/31/17 00:28 Dose: 1 mg Hydromorphone HCl (Dilaudid) 0.2 - 0.4 mg IVP Q1HR PRN PRN Reason: Pain, Breakthrough Stop: 11/10/17 00:40 Last Admin: 10/31/17 10:36 Dose: 0.4 mg Hydromorphone HCl (Dilaudid) 0.1 - 0.4 mg IVP Q10M PRN PRN Reason: PACU, PAIN Stop: 10/31/17 03:13 Last Admin: 10/31/17 04:08 Dose: 0.4 mg Sodium Chloride (Ns) 1,000 mls @ 0 mls/hr IV EDNOW ONE; Wide Open PRN Reason: Protocol Stop: 10/30/17 22:42 Last Admin: 10/30/17 22:50 Dose: 1,000 mls Cefazolin Sodium (Cefazolin Syringe) 2 gm in 20 mls @ 200 mls/hr IVP ONCALL ONE PRN Reason: Protocol Stop: 10/31/17 00:36 Last Admin: 10/31/17 01:55 Dose: 10 mls Cefazolin Sodium/Dextrose (Ancef 1 Gm (Premix)) 50 mls @ 200 mls/hr IV Q8HRS [facility] PRN Reason: Protocol Stop: 10/31/17 14:14 Last Admin: 10/31/17 09:33 Dose: 50 mls Ibuprofen (Motrin) 600 mg PO Q8HRS [facility] Stop: 04/29/18 05:59 Last Admin: 10/31/17 05:05 Dose: 600 mg Ketorolac Tromethamine (Toradol) 15 mg IVP Q6HRS [facility] Stop: 11/05/17 05:59 Last Admin: 10/31/17 11:44 Dose: 15 mg Lidocaine HCl (Lidocaine Hcl 1%) Confirm Administered Dose 300 mg .ROUTE .STK- MED ONE Stop: 10/31/17 01:03 Last Admin: 10/31/17 03:03 Dose: 100 mg Midazolam HCl (Versed) 2 mg IVP ONCALL ONE Stop: 10/31/17 01:29 Last Admin: 10/31/17 01:30 Dose: 2 mg Ondansetron HCl (Zofran) 4 mg IVP EDNOW ONE Stop: 10/30/17 22:42 Last Admin: 10/30/17 22:48 Dose: 4 mg Departure - Departure Disposition: [facility] Acute Clinical Impression: Hernia Condition: Good
[2017-10-30] MEDS ORDERED: HYDROmorphONE/DILAUDID 2 MG/ML INJ IVP ONE (22:41)
[2017-10-30] MEDS ORDERED: NS 1,000 ML IV ONE (22:41)
[2017-10-30] MEDS ORDERED: ONDANSETRON 4 MG/2 ML VIAL IVP ONE (22:41)
[2017-10-30 22:47] LABS: PLATELET COUNT 366 10^3/uL (150-400)
[2017-10-30 22:55] LABS: INR 1.01 (0.83-1.16); PROTIME(PATIENT) 13.5 SEC (12.0-15.0)
[2017-10-30] MEDS ORDERED: HYDROmorphONE/DILAUDID 1 MG/ML INJ IVP ONE (23:15)
[2017-10-31] MEDS ORDERED: HYDROmorphONE/DILAUDID 1 MG/ML INJ ONE (00:25)
[2017-10-31] MEDS ORDERED: HYDROmorphONE/DILAUDID 1 MG/ML INJ IVP ONE (00:27)
[2017-10-31] MEDS ORDERED: ceFAZolin 2 GM/SWFI 2 GM/20 ML SYR IVP ONE (00:31)
[2017-10-31] MEDS ORDERED: ZOLPIDEM TARTRATE 5 MG TAB PO PRN (00:41)
[2017-10-31] MEDS ORDERED: ONDANSETRON 4 MG/2 ML VIAL IVP PRN ×2 (00:41→02:12)
[2017-10-31] MEDS ORDERED: METOCLOPRAMIDE 10 MG/2 ML VIAL IVP PRN (00:41)
[2017-10-31] MEDS ORDERED: LR 1,000 ML IV SCH (01:00)
[2017-10-31] MEDS ORDERED: LIDOCAINE 1% 300 MG/30 ML SDV ONE (01:02)
[2017-10-31] MEDS ORDERED: BUPIVACAINE 0.5% 30 ML SDV ONE (01:02)
--- NOTE | 2017-10-31 01:04 | PDGENHP ---
History and Physical - Chief Complaint Left scrotal pain and swelling at the site of known inguinal hernia - History of Present Illness This is a 56-year-old gentleman who has had a longstanding history of a left groin hernia who presents with acute incarceration this evening. The whole left arlyn scrotum is become enlarged very tender it is not red but pain has not subsided even with pain medication. The patient had eaten pizza 3-4 hours ago after which he began having increasing amounts of pain which became excruciating he is not able to sit down or lie down due to the pain. He has not vomited. He has had a little bit of pain at the site of her knee in the past but nothing like this. Rates pain 10/10 no radiation. Movement makes it worse. He has a 1 pack per day smoker has had a history of TBI with depressed skull fracture in 2017. He is relatively poor historian History Information - Allergies/Home Medication List Allergies/Adverse Reactions: No Known Allergies Allergy (Verified 10/30/17 22:24) Home Medications: Multivitamins [Multivitamin (*)] 1 each PO DAILY 12/12/16 [Last Taken Unknown] I have personally reviewed and updated: family history, medical history, social history, surgical history - Past Medical History Additional medical history: Traumatic brain injury - Surgical History Reports: appendectomy Additional surgical history: Craniotomy. Tracheostomy. Percutaneous gastrostomy tube - Family History Positive for: non-pertinent - Social History Smoking Status: Current every day smoker Alcohol Use: Rarely Drug Use: None Review of Systems Review of Systems: ROS: 10pt was reviewed & negative except for what was stated in HPI & below Cardiac: Reports: no symptoms Respiratory: Reports: no symptoms Gastrointestinal: Reports: abdominal pain, abdominal distention Genitourinary: Reports: other (Testicular pain) Physical Exam Physical Exam: 56-year-old gentleman looks older than stated age Sclerae anicteric Oropharynx is moist Appears anxious due to pain in the left Dov Regular rate and rhythm Clear to auscultation bilaterally Abdomen soft tender left lower quadrant no peritoneal signs previous signs of appendectomy percutaneous gastrostomy tube Left arlyn scrotum grossly enlarged tender no erythema there is fluid within the left and right arlyn scrotum by palpation and there appears to be bowel incarcerated within the hernia sac. Bilateral lower extremities varicosities truncal serpentine. 2+ or 2+ femoral dorsalis pedis pulses No skin abnormalities Temp Pulse Resp BP Pulse Ox 36.4 C 70 16 138/83 H 99 10/30/17 22:22 10/31/17 00:00 10/31/17 00:00 10/31/17 00:00 10/31/17 00:00 Lab Data & Imaging Review 10/30/17 22:35 10/30/17 22:35 WBC 15.10 10^3/uL (3.80-9.50) H 10/30/17 22:35 RBC 5.16 10^6/uL (4.40-6.38) 10/30/17 22:35 Hgb 16.1 g/dL (13.7-17.5) 10/30/17 22:35 Hct 46.8 % (40.0-51.0) 10/30/17 22:35 MCV 90.7 fL (81.5-99.8) 10/30/17 22:35 MCH 31.2 pg (27.9-34.1) 10/30/17 22:35 MCHC 34.4 g/dL (32.4-36.7) 10/30/17 22:35 RDW 13.9 % (11.5-15.2) 10/30/17 22:35 Plt Count 366 10^3/uL (150-400) 10/30/17 22:35 MPV 9.5 fL (8.7-11.7) 10/30/17 22:35 Neut % (Auto) 71.5 % (39.3-74.2) 10/30/17 22:35 Lymph % (Auto) 19.1 % (15.0-45.0) 10/30/17 22:35 Wythe % (Auto) 7.4 % (4.5-13.0) 10/30/17 22:35 Eos % (Auto) 0.8 % (0.6-7.6) 10/30/17 22:35 Baso % (Auto) 0.5 % (0.3-1.7) 10/30/17 22:35 Nucleat RBC Rel Count 0.0 % (0.0-0.2) 10/30/17 22:35 Absolute Neuts (auto) 10.80 10^3/uL (1.70-6.50) H 10/30/17 22:35 Absolute Lymphs (auto) 2.88 10^3/uL (1.00-3.00) 10/30/17 22:35 Absolute Monos (auto) 1.12 10^3/uL (0.30-0.80) H 10/30/17 22:35 Absolute Eos (auto) 0.12 10^3/uL (0.03-0.40) 10/30/17 22:35 Absolute Basos (auto) 0.08 10^3/uL (0.02-0.10) 10/30/17 22:35 Absolute Nucleated RBC 0.00 10^3/uL (0-0.01) 10/30/17 22:35 Immature Gran % 0.7 % (0.0-1.1) 10/30/17 22:35 Immature Gran # 0.10 10^3/uL (0.00-0.10) 10/30/17 22:35 PT 13.5 SEC (12.0-15.0) 10/30/17 22:35 INR 1.01 (0.83-1.16) 10/30/17 22:35 APTT 28.7 SEC (23.0-38.0) 10/30/17 22:35 VBG Lactic Acid 1.2 mmol/L (0.7-2.1) 10/30/17 22:55 Sodium 137 mEq/L (135-145) 10/30/17 22:35 Potassium 4.0 mEq/L (3.3-5.0) 10/30/17 22:35 Chloride 104 mEq/L (97-110) 10/30/17 22:35 Carbon Dioxide 23 mEq/l (22-31) 10/30/17 22:35 Anion Gap 10 mEq/L (8-16) 10/30/17 22:35 BUN 9 mg/dL (7-23) 10/30/17 22:35 Creatinine 0.8 mg/dL (0.7-1.3) 10/30/17 22:35 Estimated GFR > 60 10/30/17 22:35 Glucose 130 mg/dL (70-100) H 10/30/17 22:35 Calcium 9.4 mg/dL (8.5-10.4) 10/30/17 22:35 Total Bilirubin 0.7 mg/dL (0.1-1.4) 10/30/17 22:35 Conjugated Bilirubin 0.4 mg/dL (0.0-0.5) 10/30/17 22:35 Unconjugated Bilirubin 0.3 mg/dL (0.0-1.1) 10/30/17 22:35 AST 19 IU/L (17-59) 10/30/17 22:35 ALT 19 IU/L (21-72) L 10/30/17 22:35 Alkaline Phosphatase 136 IU/L (38-126) H 10/30/17 22:35 Total Protein 6.8 g/dL (6.3-8.2) 10/30/17 22:35 Albumin 4.0 g/dL (3.5-5.0) 10/30/17 22:35 Lipase 234 IU/L (23-300) 10/30/17 22:35 Imaging Review: Imaging Impressions Pelvic/Renal Ultrasound 10/30/17 22:42 Impression: 1. Large indirect inguinal hernia containing multiple small bowel loops. Findings discussed with Alex Vann MD at 23:27 hour, 10/30/2017. Assessment & Plan Assessment: Hernia (Acute) Plan: The patient has a large incarcerated inguinal hernia that will require operative decompression possibly through both groin and lower midline incisions. The risk of mesh placement versus th risk of incarceration been outlined with the patient. He may require tissue repair with higher possibility of recurrence. Patient also is a smoker he has been apprised of the risk that smoking has with recurrence in hernia repair. Plan proceed with surgery 2 g Ancef prior to induction all questions were addressed prior to his verbalizing consent and understanding. Written consent was signed. The patient will proceed to the operating room at the soonest opportunity as emergency case as he ate within the last 3 hr
[2017-10-31] MEDS ORDERED: MIDAZOLAM 2 MG/2 ML VIAL ONE (01:25)
[2017-10-31] MEDS ORDERED: MIDAZOLAM 2 MG/2 ML VIAL IVP ONE (01:28)
--- NOTE | 2017-10-31 01:29 | PDANEPAE ---
ANE History of Present Illness incarcerated hernia ANE Past Medical History - Pulmonary History Hx Oxygen in Use at Home: No Hx Sleep Apnea: No - Endocrine History Hx Diabetes: No - Chronic Pain History Chronic Pain: No ANE Review of Systems Review of systems is: negative Review of Systems: - Exercise capacity METS (RN): 4 METS ANE Patient History - Allergies Allergies/Adverse Reactions: No Known Allergies Allergy (Verified 10/30/17 22:24) - Home Medications Home Medications: Multivitamins [Multivitamin (*)] 1 each PO DAILY 12/12/16 [Last Taken Unknown] - NPO status NPO Since - Liquids (Date): 10/30/17 NPO Since - Liquids (Time): 20:00 NPO Since - Solids (Date): 10/30/17 NPO Since - Solids (Time): 20:30 - Smoking Hx Smoking Status: Current every day smoker - Alcohol Use Alcohol Use: Rarely ANE Labs/Vital Signs - Labs Result Diagrams: 10/30/17 22:35 10/30/17 22:35 - Vital Signs Blood Pressure: 138/83 Heart Rate: 70 Respiratory Rate: 16 O2 Sat (%): 99 Height: 185.42 cm Weight: 72.575 kg ANE Physical Exam - Airway Neck exam: FROM Mallampati Score: Class 1 Mouth exam: dentures - Pulmonary Pulmonary: no respiratory distress - Cardiovascular Cardiovascular: regular rate and rhythym - ASA Status ASA Status: II, E ANE Anesthesia Plan Anesthesia Plan: general endotracheal anesthesia
[2017-10-31] MEDS ORDERED: PROPOFOL 200 MG/20 ML VIAL ONE (01:31)
[2017-10-31] MEDS ORDERED: fentaNYL 100 MCG/2 ML INJ ONE ×3 (01:31→03:35)
[2017-10-31] MEDS ORDERED: HYDROmorphONE/DILAUDID 2 MG/ML INJ IVP PRN (02:12)
[2017-10-31] MEDS ORDERED: HYDROCODONE/APAP 5/325 TAB PO PRN (02:12)
[2017-10-31] MEDS ORDERED: PROMETHAZINE HCL 25 MG/ML INJ IVP PRN (02:12)
[2017-10-31] MEDS ORDERED: NALOXONE HCL 0.4 MG/ML INJ IVP PRN (02:12)
[2017-10-31] MEDS ORDERED: DEXAMETHASONE 4 MG/ML VIAL ONE (02:42)
[2017-10-31] MEDS ORDERED: ONDANSETRON 4 MG/2 ML VIAL ONE (02:42)
[2017-10-31] MEDS ORDERED: SUGAMMADEX SODIUM 200 MG/2 ML VIAL IVP ONE (02:42)
[2017-10-31] MEDS ORDERED: ROCURONIUM 50 MG/5 ML VIAL ONE (02:42)
--- NOTE | 2017-10-31 03:28 | POSTANESTH ---
Post Anesthetic Evaluation Cardiovascular Status: Normal, Stable Respiratory Status: Normal, Stable Level of Consciousness/Mental Status: Can Participate in Eval Pain Control: Adequate, Prn Tx Ordered Nausea/Vomiting Control: Adequate, Prn Tx Ordered
[2017-10-31] MEDS: fentaNYL 100 MCG/2 ML INJ IVP PRN ×3 (03:38→03:59)
--- NOTE | 2017-10-31 03:50 | POSTOPPROG ---
Post Op Note Date of Operation: 10/31/17 Surgeon: Herman Green Appliance Technician: none Anesthesiologist: Tahmina Hu Anesthesia: GET(General Endotracheal) Pre-op Diagnosis: Incarcerated large left inguinal hernia Post-op Diagnosis: same Procedure: Open left inguinal hernia repair Findings: incarcerated small bowel Inf/Abcess present in the surg proc area at time of surgery?: No Complications: none Specimen(s): sac
[2017-10-31] MEDS ORDERED: KETOROLAC 15 MG/1 ML SDV ONE (04:02)
[2017-10-31] MEDS ORDERED: HYDROmorphONE/DILAUDID 2 MG/ML INJ ONE (04:06)
[2017-10-31] MEDS: KETOROLAC 15 MG/1 ML SDV IVP SCH ×2 (04:09→11:44)
[2017-10-31] MEDS: HYDROmorphONE/DILAUDID 1 MG/ML INJ IVP PRN ×4 (05:03→10:36)
[2017-10-31] MEDS: HYDROCODONE/APAP 5/325 TAB PO PRN ×2 (05:05→09:28)
[2017-10-31] MEDS ORDERED: IBUPROFEN 600 MG TAB PO SCH (06:00)
--- NOTE | 2017-10-31 08:19 | GOP ---
[f rep st] OPERATIVE REPORT DATE OF OPERATION: SURGEON: Herman Green MD LICENSING OFFICER: None. ANESTHESIA: General endotracheal anesthesia was used. ANESTHESIOLOGIST: Ave Hu MD. PREOPERATIVE DIAGNOSIS: Left inguinal hernia. POSTOPERATIVE DIAGNOSIS: Indirect inguinal hernia with 2 feet of incarcerated small bowel. PROCEDURE PERFORMED: Open repair, Fransico type with Prolene mesh. FINDINGS: SPECIMENS: Sac to permanent pathology. ESTIMATED BLOOD LOSS: Less than 50 mL. DESCRIPTION OF PROCEDURE: The patient was brought to the operating room. After induction of general endotracheal anesthesia, the abdomen was prepped and draped as well as the groin and scrotum with ch lorhexidine. Time-out procedure was then performed according to institutional standards. Local anes thetic was infused in the skin and subcutaneous tissues of the field block as well as the skin overly ing the incision. The incision was made in lines of Langerhans in the left groin deepened with elect rocautery. Careful dissection reveals the sac which has incarcerated small bowel. The sac was opene d and the patient was relaxed in order to reintroduce the small bowel to the peritoneal cavity. Appr oximately 2 to 2.5 feet of small bowel were incarcerated through this small defect and the bowel was able to be reduced without difficulty. There is a small amount of fluid around the small bowel. All the bowel appeared viable. The fluid does not appear infected, more clear ascitic type fluid second love to incarceration. The area was inspected. The sac was then reduced, taken off the scrotum and p assed off as a specimen. Pursestring ligation of the end of the sac was performed with 3-0 Vicryl. The fascia of the external oblique is identified lateral to the cord. Cord structures are encircled with a Eads drain. The fascia is opened slightly laterally and the mesh was then affixed to the i nguinal floor medially to the pubic tubercle, superolaterally to the transversalis muscle and inferol aterally along the shelving edge of the inguinal ligament. The leaves of the mesh were then reapprox imated to allow 1 fingerbreadth of cord extrusion. The area was then sewn in with 3-0 Ethibond sutur e before closing the external oblique in layers the Cristal's fascia, deep dermis and skin. The skin was reapproximated using 4-0 Monocryl. Dermabond was applied. The patient is awakened, extubated, t aken to recovery room in stable condition. Needle, instrument, and sponge counts were verified to be correct. There were no complications of the surgery. HISTORY OF PRESENT ILLNESS: This is a 56-year-old gentleman who presents to the emergency room with an acutely incarcerated hernia. I was able to reduce it in the past. It became incarcerated this ev ening/this morning and he came to the emergency room. An extremis ultrasound demonstrates peristalsi s within the scrotum consistent with bowel presence as well as a slightly under perfused testicle, bu t still with some perfusion. The patient was taken urgently to the operating room. Risks, benefits, and alternatives have been explained to the patient and his significant other. COMPLICATIONS: There were no complications. /[id number]/MODL
[2017-10-31 11:21] VITALS: BP 103/66
--- NOTE | 2017-10-31 11:51 | PDMN ---
Medical Necessity Medical necessity: Pt meets IP criteria per MD; est los >2mn s/p open repair of large incarcerated inguinal hernia requiring mesh implantation; admit for further monitoring, IVFs & pain management; hx TBI w/depressed skull fx & L groin hernia; per H&P & order 10/31/17
== END 2017-10-31 12:34 | disposition home or self-care (01) | DRG 228 ==
LOC: F3N 10-31 04:36
PROVIDERS: ADMIT Surgery; ATTEND Surgery
PROC: 0YU60JZ Supplement Left Inguinal Region with Synthetic Substitute, Open Approach (ICD-10-PCS; principal; 2017-10-31 01:30)
DX: K40.30 Unilateral inguinal hernia, with obstruction, without gangrene, not specified as recurrent (principal); F17.210 Nicotine dependence, cigarettes, uncomplicated; Z87.820 Personal history of traumatic brain injury
CPT/HCPCS: C1781; J0690; J1100; J1170; J1885; J2250; J2405; J2704; J3010